=== PATIENT | female | born 1965 | race Caucasian/White ===

== ENCOUNTER → 2017-10-22 | Outpatient (CLI) | payer BC ==
--- NOTE | 2017-10-22 15:35 | Diagnostic Imaging Report ---
INDICATION: Generalized pelvic pain. FINDINGS: Transabdominal and transvaginal pelvic sonography was performed. The uterus measures 10.0 x 6.1 x 5.5 cm. The endometrium is abnormally thickened at 14 mm. No myometrial mass is seen. There are small cervical nabothian cysts present. Right and left adnexal evaluation was performed. The ovaries were not visualized due to overlying bowel gas. No adnexal mass is seen. No free fluid is detected. IMPRESSION: 1. Endometrial thickening for a patient of this age. This could be owing to hyperplasia or polyp, however, neoplasm cannot be entirely excluded. Remainder of the study is unremarkable although the adnexa were poorly visualized due to overlying bowel gas. Dictated by: Dictated on workstation # [id number]
== END ==
LOC: RAD 14:11
PROVIDERS: ATTEND Nurse Practitioner
DX: R93.8 Abnormal findings on diagnostic imaging of other specified body structures (principal); N91.2 Amenorrhea, unspecified
CPT/HCPCS: 76830; 76856

== ENCOUNTER 2017-12-13 09:22 | Outpatient (CLI) | payer BC ==
[~2017-12-13] VITALS: Ht 160 cm; Wt 148.3 kg
[2017-12-13 09:37] VITALS: BP 145/85
[2017-12-13 10:07] LABS: BASOPHILS # (AUTO) 0.1 10^3/uL (0.0-0.1); BASOPHILS % (AUTO) 1 % (0-10); EOSINOPHILS # (AUTO) 0.4 10^3/uL (0.0-0.3); EOSINOPHILS % (AUTO) 6 % (0-10); HEMATOCRIT 34 % (35-52); HEMOGLOBIN 10.8 G/DL (11.5-16.0); LYMPHOCYTES # (AUTO) 1.5 X 10^3 (1.0-4.0); LYMPHOCYTES % (AUTO) 23 % (12-44); MEAN CORPUSCULAR HEMOGLOBIN 24 PG (25-34); MEAN CORPUSCULAR HGB CONC 31 G/DL (32-36); MEAN CORPUSCULAR VOLUME 78 FL (80-99); MEAN PLATELET VOLUME 9.2 FL (7.4-10.4); MONOCYTES # (AUTO) 0.5 X 10^3 (0.0-1.0); MONOCYTES % (AUTO) 8 % (0-12); NEUTROPHILS # (AUTO) 4.1 X 10^3 (1.8-7.8); NEUTROPHILS % (AUTO) 62 % (42-75); PLATELET COUNT 349 10^3/uL (130-400); RED BLOOD COUNT 4.43 10^6/uL (4.35-5.85); RED CELL DISTRIBUTION WIDTH 15.9 % (10.0-14.5); WHITE BLOOD COUNT 6.6 10^3/uL (4.3-11.0)
[2017-12-20] MEDS ORDERED: IBUP-844 PO (07:25)
[2017-12-20] MEDS ORDERED: DOCU100C37 PO (07:25)
[2017-12-20] MEDS ORDERED: SIME80TA16 PO (07:25)
[2017-12-20] MEDS ORDERED: HYDR-34 PO (07:25)
== END 2017-12-13 09:57 | disposition home or self-care (01) ==
LOC: PREOP 09:22
PROVIDERS: ATTEND Obstetrics & Gynecology
DX: Z01.812 Encounter for preprocedural laboratory examination (principal); Z11.2 Encounter for screening for other bacterial diseases; N95.0 Postmenopausal bleeding
CPT/HCPCS: 36415; 85025; 86850; 86900; 86901; 87081

== ENCOUNTER 2017-12-20 06:10 | Day surgery (SDC) | payer BC ==
[~2017-12-20] VITALS: Ht 160 cm; Wt 148.3 kg
--- OUTSIDE RECORDS SUMMARY | 2017-12-20 06:19 | XMS REPORT | Continuity of Care Document ---
Author Author [facility] Organization [facility] Address Unknown Phone Unavailable Allergies Active Description Code Type Severity Reaction Onset Reported/Identified Relationship to Patient Clinical Status Yes Penicillins [id number] Drug Allergy Unknown RASH 12/13/2017 Medications There is no data. Problems Date Dx Coded Attending Type Code Diagnosis Diagnosed By 08/25/2014 NIKKIE MARY Ot 611.71 08/16/2015 Ot V76.12 08/16/2015 NIKKIE MARY CONTACT OFFICER Ot 625.9 08/16/2015 NIKKIE MARY CONTACT OFFICER Ot 626.8 08/16/2015 NIKKIE MARY CONTACT OFFICER Ot V76.12 08/16/2015 NIKKIE MARY CONTACT OFFICER Ot 611.71 10/22/2017 NIKKIE MARY CONTACT OFFICER Ot 625.9 FEM GENITAL SYMPTOMS NOS 10/22/2017 NIKKIE MARY CONTACT OFFICER Ot 626.8 MENSTRUAL DISORDER NEC 10/22/2017 NIKKIE MARY CONTACT OFFICER Ot V76.12 OTH SCREEN MAMMO-MALIGN NEOPLASM OF ELISE 10/22/2017 NIKKIE MARY CONTACT OFFICER Ot 611.71 MASTODYNIA 10/23/2017 NIKKIE MARY CONTACT OFFICER Ot N91.2 AMENORRHEA, UNSPECIFIED 10/23/2017 NIKKIE MARY CONTACT OFFICER Ot R93.8 ABNORMAL FINDINGS ON DIAGNOSTIC IMAGING 10/28/2017 NIKKIE MARY CONTACT OFFICER Ot N91.2 AMENORRHEA, UNSPECIFIED 10/28/2017 NIKKIE MARY CONTACT OFFICER Ot R93.8 ABNORMAL FINDINGS ON DIAGNOSTIC IMAGING 11/14/2017 NIKKIE MARY CONTACT OFFICER Ot N91.2 AMENORRHEA, UNSPECIFIED 11/14/2017 NIKKIE MARY CONTACT OFFICER Ot R93.8 ABNORMAL FINDINGS ON DIAGNOSTIC IMAGING 12/14/2017 TELLY PAYTON DO Ot N95.0 POSTMENOPAUSAL BLEEDING 12/14/2017 TELLY PAYTON DO Ot Z01.812 ENCOUNTER FOR PREPROCEDURAL LABORATORY E 12/14/2017 TELLY PAYTON DO Ot Z11.2 ENCOUNTER FOR SCREENING FOR OTHER BACTER 12/19/2017 TELLY PAYTON DO Ot N95.0 POSTMENOPAUSAL BLEEDING 12/19/2017 TELLY PAYTON DO Ot Z01.812 ENCOUNTER FOR PREPROCEDURAL LABORATORY E 12/19/2017 TELLY PAYTON DO Ot Z11.2 ENCOUNTER FOR SCREENING FOR OTHER BACTER Procedures There is no data. Results Test Result Range Methicillin resistant Staphylococcus aureus (MRSA) screening culture - 09:50 Methicillin resistant Staphylococcus aureus (MRSA) screening culture NEG NRG Complete blood count (CBC) with automated white blood cell (WBC) differential - 12/13/17 09:53 Blood leukocytes automated count (number/volume) 6.6 10*3/uL 4.3-11.0 Blood erythrocytes automated count (number/volume) 4.43 10*6/uL 4.35-5.85 Venous blood hemoglobin measurement (mass/volume) 10.8 g/dL 11.5-16.0 Blood hematocrit (volume fraction) 34 % 35-52 Automated erythrocyte mean corpuscular volume 78 [foz_us] 80-99 Automated erythrocyte mean corpuscular hemoglobin (mass per erythrocyte) 24 pg 25-34 Automated erythrocyte mean corpuscular hemoglobin concentration measurement ( mass/volume) 31 g/dL 32-36 Automated erythrocyte distribution width ratio 15.9 % 10.0-14.5 Automated blood platelet count (count/volume) 349 10*3/uL 130-400 Automated blood platelet mean volume measurement 9.2 [foz_us] 7.4-10.4 Automated blood neutrophils/100 leukocytes 62 % 42-75 Automated blood lymphocytes/100 leukocytes 23 % 12-44 Blood monocytes/100 leukocytes 8 % 0-12 Automated blood eosinophils/100 leukocytes 6 % 0-10 Automated blood basophils/100 leukocytes 1 % 0-10 Blood neutrophils automated count (number/volume) 4.1 10*3 1.8-7.8 Blood lymphocytes automated count (number/volume) 1.5 10*3 1.0-4.0 Blood monocytes automated count (number/volume) 0.5 10*3 0.0-1.0 Automated eosinophil count 0.4 10*3/uL 0.0-0.3 Automated blood basophil count (count/volume) 0.1 10*3/uL 0.0-0.1 Blood type T Indirect antibody screen panel - 12/13/17 09:53 ABO+Rh group AN NRG Blood group antibody screen NEGATIVE NRG Encounters ACCT No. Visit Date/Time Discharge Status Pt. Type Provider Facility Loc./Unit Complaint [id number] 12/13/2017 09:22:00 12/13/2017 09:57:00 DIS Outpatient TELLY PAYTON DO [facility] PREOP ROBOTIC HYSTERECOMY , A P REPAIRS [id number] 10/24/2017 14:02:00 10/24/2017 23:59:59 CLS Preadmit NIKKIE MARY [facility] RAD SCREENING Z12.31 [id number] 10/22/2017 14:11:00 10/22/2017 23:59:59 CLS Outpatient NIKKIE MARY [facility] RAD R10.2 PELVIC PAIN [id number] 07/28/2014 08:00:00 07/28/2014 23:59:59 CLS Outpatient NIKKIE MARY [facility] RAD ABNORMAL MAMMO [id number] 04/02/2014 14:21:00 04/02/2014 23:59:59 CLS Outpatient NIKKIE MARYP [facility] RAD DUB AND PELVIC PAIN SCREENING [id number] 12/20/2017 07:30:00 PEN Preadmit TELLY PAYTON DO [facility] [address] PELVIC ORGAN PROLAPSE, UT. ENLARGEMENT, [id number] 04/10/2012 13:30:00 Document Registration
[2017-12-20 06:20] VITALS: BP 133/77
[2017-12-20] MEDS ORDERED: LACTATED RINGERS 1,000 ML IV ONE (06:30)
[2017-12-20] MEDS ORDERED: LACTATED RINGERS 1,000 ML IV PRN ×2 (06:44→06:51)
[2017-12-20] MEDS ORDERED: metroNIDAZOLE 500MG/100ML IVPB 100 ML IV ONE (06:45)
[2017-12-20] MEDS ORDERED: ceFAZolin 2 GM IV Premixed 50 ML IV ONE (06:45)
[2017-12-20] MEDS ORDERED: ceFAZolin 2 GM IV Premixed 50 ML ONE (06:46)
[2017-12-20] MEDS ORDERED: ONDANSETRON 4 MG/2 ML (SDV) Z0FRAN ONE (06:46)
[2017-12-20] MEDS ORDERED: metroNIDAZOLE 500MG/100ML IVPB 100 ML ONE (06:47)
[2017-12-20] MEDS ORDERED: FAMOTIDINE 20MG/2ML IV (PEPCID) ONE (06:47)
[2017-12-20] MEDS ORDERED: ESTROGENS CONJ. CREAM 30 GM (PREMARIN) TUBE ONE (06:51)
[2017-12-20] MEDS ORDERED: VASOPRESSIN INJECTION 20 UNIT/ML VIAL ONE (06:51)
[2017-12-20] MEDS ORDERED: BUPIVACAINE 0.25% 30 ML (SENSORCAINE) VIAL ONE (06:52)
[2017-12-20] MEDS ORDERED: LIDOCAINE PF 2% 5 ML (XYLOCAINE) VIAL ONE (06:55)
[2017-12-20] MEDS ORDERED: proPOfol 200 MG/20 ML (DIPRIVAN) VIAL IV ONE (06:55)
[2017-12-20] MEDS ORDERED: SEVOFLURANE (ULTANE) 15 ML INHAL SOLN ONE ×6 (06:55→09:08)
[2017-12-20] MEDS ORDERED: SUCCINYLCHOLINE INJ 100 MG/5 ML SYR ONE (06:56)
[2017-12-20] MEDS ORDERED: MIDAZOLAM 2 MG/2 ML (VERSED) VIAL ONE (06:56)
[2017-12-20] MEDS ORDERED: fentaNYL INJECTION 100 MCG/2 ML AMP ONE (06:56)
[2017-12-20] MEDS ORDERED: ROCURONIUM 10 MG/ML 5 ML SYRINGE IV ONE (06:56)
[2017-12-20] MEDS ORDERED: ONDANSETRON 4 MG/2 ML (SDV) Z0FRAN IV ONE (07:00)
[2017-12-20] MEDS ORDERED: FAMOTIDINE 20MG/2ML IV (PEPCID) IV ONE (07:00)
--- NOTE | 2017-12-20 07:18 | Progress Note-Pre Operative ---
Pre-Operative Progress Note H&P Reviewed The H&P was reviewed, patient examined and no changes noted. Date Seen by Provider: December 20, 2017 Time Seen by Provider: 07:00 Date H&P Reviewed: December 20, 2017 Time H&P Reviewed: 07:05 Pre-Operative Diagnosis: Pelvic organ prolapse, CPP, AUB, BMI 57 TELLY PAYTON DO December 20, 2017 7:18 am
--- NOTE | 2017-12-20 07:23 | Discharge Inst-Women's Service ---
Discharge Inst-Women's Serv Depart Medication/Instructions New, Converted or Re-Newed RX: RX on Chart Consults/Follow Up Additional Follow Up: Yes Orders/Referrals Dr. Joya in 7-10 days and in 8 weeks Activity Activity: Activity as Tolerated Driving Instructions: No Driving for 1 Week NO SMOKING: NO SMOKING Nothing Inside Vagina: No Douching, No [place], No Tampons Diet Discharge Diet: No Restrictions Symptoms to Report to : Bleeding Excessive, Pain Increased, Fever Over 101 Degrees F, Vaginal Bleeding Increase, Questions/Concerns For Any Problems or Questions: Contact Your Physician Skin/Wound Care Infection Signs and Symptoms: Increased Redness, Foul Odor of Wound, Increased Drainage, Skin Itchy or Has a Rash, Increased Swelling, Temperature Above 101 F Operative Area Clean and Dry: Keep Incision Clean/Dry Stitches/Susan/Dermabond: Dermabond, Care of Stitches Bathing Instructions: TELLY Stephenson DO December 20, 2017 7:23 am
[2017-12-20] MEDS ORDERED: HYDR-34 PO (07:25)
[2017-12-20] MEDS ORDERED: IBUP-844 PO (07:25)
[2017-12-20] MEDS ORDERED: SIME80TA16 PO (07:25)
[2017-12-20] MEDS ORDERED: DOCU100C37 PO (07:25)
[2017-12-20] MEDS ORDERED: ONDANSETRON 4 MG/2 ML (SDV) Z0FRAN IV PRN (07:30)
[2017-12-20] MEDS ORDERED: DOCUSATE SODIUM 100 MG (COLACE) CAP PO PRN (07:30)
[2017-12-20] MEDS ORDERED: CHLORASEPTIC LOZENGE MM PRN (07:30)
[2017-12-20] MEDS ORDERED: ZOLPIDEM 5 MG (AMBIEN) TAB PO PRN (07:30)
[2017-12-20] MEDS ORDERED: SIMETHICONE 80 MG (MYLICON) CHEW PO PRN (07:30)
[2017-12-20] MEDS ORDERED: ANTACID SUSP 30 ML UDC (MYLANTA) PO PRN (07:30)
[2017-12-20] MEDS ORDERED: morphine INJ 10 MG/ML 1ML (SYR OR VIAL) ONE (09:40)
[2017-12-20] MEDS ORDERED: ONDANSETRON 4 MG/2 ML (SDV) Z0FRAN IVP PRN (09:45)
[2017-12-20] MEDS ORDERED: HYDROmorphone 2 MG/ML VIAL (DILAUDID) IVP PRN (09:45)
[2017-12-20] MEDS: KETOROLAC 30 MG/ML VIAL IV PRN ×2 (09:45→17:40)
[2017-12-20] MEDS ORDERED: fentaNYL INJECTION 100 MCG/2 ML AMP IVP PRN (09:45)
[2017-12-20] MEDS ORDERED: MEPERIDINE (DEMEROL) INJ 50 MG/ML IVP PRN (09:45)
[2017-12-20] MEDS: morphine INJ 10 MG/ML 1ML (SYR OR VIAL) IVP PRN ×2 (09:50→09:55)
[2017-12-20 10:40] VITALS: BP 113/58
[2017-12-20] MEDS: HYDROcodone/APAP 7.5 MG/325 MG (LORTAB, LORCET PLUS) TABLET PO PRN ×2 (11:59→20:09)
[2017-12-20] MEDS: LACTATED RINGERS 1,000 ML IV SCH ×2 (14:06→18:41)
[2017-12-20 15:15] VITALS: BP 109/62
--- NOTE | 2017-12-20 15:15 | OPERATIVE REPORT ---
DATE OF SERVICE: PREOPERATIVE DIAGNOSES: 1. A 52-year-old female with abnormal uterine bleeding. 2. Pelvic organ prolapse. 3. Rectocele. 4. Cystocele. 5. Morbid obesity with a BMI of 57. POSTOPERATIVE DIAGNOSES: 1. A 52-year-old female with abnormal uterine bleeding. 2. Pelvic organ prolapse. 3. Rectocele. 4. Cystocele. 5. Morbid obesity with a BMI of 57. PROCEDURE: Robotic-assisted total laparoscopic hysterectomy with bilateral salpingo-oophorectomy and posterior colporrhaphy. SURGEON: Derek Joya DO SHELLFISH WEIGHER: ANA Collado. ANESTHESIA: General endotracheal. ESTIMATED BLOOD LOSS: Minimal. URINE OUTPUT: 20 mL clear at end of procedure. FLUIDS: 1500 mL of lactated Ringer solution. FINDINGS: Slightly bulky and enlarged uterus with bilateral normal appearing fallopian tubes and ovaries, a grade III rectocele, a grade II cystocele, normal vaginal mucosa. SPECIMEN SENT: Uterus, bilateral fallopian tubes and ovaries. INDICATIONS FOR PROCEDURE: This 52-year-old female was a consultation to me from Gale Gracia, our nurse practitioner, who had seen the patient for irregular bleeding. Endometrial biopsy was performed in the office at my consultation with her which was found to be negative for malignancy or infectious causes. However, at that visit, I also was able to gather that the patient had a significant degree of pelvic organ prolapse as well as some chronic pelvic pain and pressure that she fell down the pelvis. At that consultation, we briefly reviewed proceeding with hysterectomy. At followup consultation, we further discussed what this would entail versus placing a pessary, which would not correct the rectocele. Risk of this procedure was discussed in detail including risk of bleeding, infection, damage to any surrounding structures including but not limited to bowel, bladder, ureter, kidneys, need for reoperation, postoperative thromboembolic events, possibility of postoperative complications, risk from anesthesia and even . After everything was discussed with the patient and all of her questions were answered both in the consultation and in the preoperative area, the consent was obtained and the patient was taken to the operating room. OPERATIVE REPORT IN DETAIL: Once in the operating room, general anesthesia was found to be adequate. She was placed in dorsal lithotomy position, prepped and draped in normal sterile fashion. The case was started by placing a Elena catheter using sterile technique. A weighted speculum was inserted in the patient's vagina. A right angle retractor was used to visualize the cervix, which is grasped at the 12 o'clock position using a long Allis clamp. I then placed an 0 Vicryl suture through the anterior lip of the cervix and remove Allis clamp. I used this suture as my retraction on the uterus. I then sound the uterine cavity depth was found to be 10 cm. I then selected a 10 cm Jojo uterine manipulator tip and a 4 cm colpotomy ring. Placing the manipulator tip into the endometrial cavity and deployed the balloon and advancing the colpotomy ring around the cervix. Once this was noted to be in place, I removed the weighted speculum and perform a change of gloves and took the attention to the abdomen where supraumbilically I infiltrated this area using 0.25% Marcaine. I make an 8 mm incision. I directed a Veress needle through the incision until intraperitoneal placement, which was then confirmed using a saline drop test. I then proceeded with insufflation using CO2 gas and opening pressure of 6 mmHg was noted. I proceed to a maximum pressure of 15 mmHg, which when I removed the Veress needle and introduced an 8 mm blunt da Hero camera trocar. Once this was in place, I am able to confirm intraperitoneal placement using da Hero laparoscope. I then had the patient placed in Trendelenburg, so that I am able to visualize all the adequate pelvic anatomy and landmarks that I need to perform the procedure. Once this was done, I placed two lateral trocars approximately 12 to 13 cm lateral to my supraumbilical trocar. They are both 8 mm trocars. Incisions were made using a knife and the skin is infiltrated using 0.25% Marcaine similarly. Once these are in place, I bring in the da Hero robot and docked it in the appropriate fashion placing the vessel sealer in my left hand and monopolar rai in the right hand. Once the da Hero is docked, I took my place at the operative console. I then performed the following bilaterally. I first started at the infundibulopelvic ligament, bipolar cauterized and transected using the vessel sealer. I grasped the round ligament, bipolar cauterized and transected using vessel sealer. I then unable to grasp the entire broad ligament, which I bipolar cauterized and transected using the vessel sealer. I then took the anterior leaflet of the broad ligament around to the anterior vaginal fornix, taking down the peritoneum. I took the posterior leaflet down to the posterior vaginal fornix, taken down the peritoneum, which allowed me to skeletonize the uterine vessels laterally, which I bipolar cauterized and transected using the vessel sealer. Once this was done, I performed a colpotomy at 12 o'clock position and took this colpotomy circumferentially around the vaginal fornix using monopolar rai, amputating the cervix away from the vaginal fornix. The uterus, cervix, fallopian tubes, and ovaries were then removed through the vagina. I then closed the vaginal cuff, starting with 2-0 Vicryl suture in the lateral vaginal apices, colopsuspending then to the uterosacral ligaments. I then closed the remainder of the vaginal cuff using 2-0 V-Loc, after which was no active bleeding noted from any of my dissection planes. I then undocked the da Hero robot and took my attention back to the abdomen where I copiously irrigated the pelvis using normal saline. Once again, there was no active bleeding noted from any of my dissection planes. I placed FloSeal hemostatic agent over my planes of dissection to ensure postoperative hemostasis and then removed the lateral trocars from the patient under direct visualization of the laparoscope. The supraumbilical trocar was left in place to release insufflation and to introduce 10 mL of 0.25% Marcaine. Once this was in place, I then removed the supraumbilical trocar. We closed the incisions using 4-0 Monocryl in interrupted subcuticular stitch. Dermabond was applied to the incision and bandage was placed over these incisions. I then took my attention back to the vagina where the cystocele was noted to be completely reduced at this point; however, there was still a significant grade III to grade IV rectocele. I started by grasping the mucocutaneous junction of the vaginal introitus at the 5 and 7 o'clock position using Allis clamps. I then infiltrated the perineal body with vasopressin and infiltrated the submucosa of the vagina using vasopressin around all the margins of the rectocele. The vasopressin concentration is 20 units in 100 mL of normal saline. Once all the margins of the rectocele are infiltrated and adequate blanching was noted of the mucosa. I then took a knife and between the 2 Allis clamps, I make an incision with a knife and connect this incision down the perineal body creating an upside down triangle. The skin was then removed. I then had a plane to start my dissection down to the midline of the rectocele. I do this using Metzenbaum scissors undermining the tissue all the way down the extent of the midline of the rectocele. I then incised this entire undermining incision using the Metzenbaum scissors. I then performed the following bilaterally. I grasped the mucosa on the lateral aspect of the incision using a T clamp and dissect the underlying rectocele off of the underlying rectovaginal fascia. Once this was done bilaterally, I trimmed the excess vaginal mucosa and rectovaginal fascia from the lateral aspects of the rectocele. I then proceeded with closing the rectocele using 0 Vicryl suture in a running locked fashion. This both reduces the rectocele and reapproximate the rectovaginal fascia plicating it down my repair margin. The suture is locked all the way down to the point of the mucocutaneous junction, at which point I bring the suture out down the midline of the perineal body incision and performed 2 deep crown stitches to reapproximate the perineal body. I then closed the skin of the perineal body in a running subcuticular fashion using the 0 Vicryl. Once this is done, hemostasis was noted of all of my dissection plane. I then packed the vagina using vaginal packing soaked in Premarin cream and leave the Elena catheter in place. All other instruments were removed from the patient. Lap and sponge count was correct at the end of the procedures. Instrument counts were correct as well. The patient tolerated the procedure well and sent to recovery in stable condition. Two grams of Ancef and 500 mg of Flagyl were given preoperatively for infection prophylaxis. Job ID: [id number] DocumentID: [id number] Dictated Date: 12/20/2017 09:52:49 Campground Manager Date: 12/20/2017 15:15:17 Dictated By: DEREK JOYA DO
[2017-12-20] MEDS ORDERED: FUROSEMIDE 40 MG/4 ML INJ (LASIX) IVP NR (18:30)
[2017-12-20 20:10] VITALS: BP 100/66
[2017-12-21] MEDS: KETOROLAC 30 MG/ML VIAL IV PRN (00:46)
[2017-12-21 00:50] VITALS: BP 106/68
[2017-12-21] MEDS: LACTATED RINGERS 1,000 ML IV SCH (02:47)
[2017-12-21 04:55] VITALS: BP 111/69
[2017-12-21] MEDS: IBUPROFEN 600 MG (MOTRIN) TAB PO PRN ×2 (06:43→13:01)
[2017-12-21 09:00] VITALS: BP 125/67
--- NOTE | 2017-12-21 10:31 | Anesthesia-General Post-Op ---
General Patient Condition Mental Status/LOC: Same as Preop Cardiovascular: Satisfactory Nausea/Vomiting: Absent Respiratory: Satisfactory Pain: Controlled Complications: Absent Post Op Complications Complications None Follow Up Care/Instructions Patient Instructions None needed. Anesthesia/Patient Condition Patient Condition Patient is doing well, no complaints, stable vital signs, no apparent adverse anesthesia problems. No complications reported per nursing. GERDA LEY CRNA December 21, 2017 10:31
[2017-12-21 13:15] VITALS: BP 103/62
[2017-12-21] MEDS: HYDROcodone/APAP 7.5 MG/325 MG (LORTAB, LORCET PLUS) TABLET PO PRN (14:18)
== END 2017-12-21 14:20 | disposition home or self-care (01) ==
LOC: SDC 06:10 → WS 09:26 → SDC 12-21 14:20
PROVIDERS: ATTEND Obstetrics & Gynecology
DX: N93.9 Abnormal uterine and vaginal bleeding, unspecified (principal); N81.10 Cystocele, unspecified; N81.6 Rectocele; N72 Inflammatory disease of cervix uteri; N88.8 Other specified noninflammatory disorders of cervix uteri; N80.0 Endometriosis of uterus; D25.1 Intramural leiomyoma of uterus; N83.8 Other noninflammatory disorders of ovary, fallopian tube and broad ligament; D27.0 Benign neoplasm of right ovary; N94.89 Other specified conditions associated with female genital organs and menstrual cycle; N83.292 Other ovarian cyst, left side; E66.01 Morbid (severe) obesity due to excess calories; Z68.43 Body mass index [BMI] 50.0-59.9, adult
CPT/HCPCS: 84703; 86850; 86900; 86901; 88307

== ENCOUNTER 2020-09-15 08:46 | Emergency (ER) | payer BC ==
[~2020-09-15] VITALS: Ht 160 cm; Wt 115.0 kg
[~2020-09-15 08:46] MED LIST: DOCU100C37 PO; HYDR-34 PO; IBUP-844 PO; SIME80TA16 PO
--- NOTE | 2020-09-15 08:58 | ED General ---
General Chief Complaint: General Problems/Pain Stated Complaint: FALL Source of Information: Patient History of Present Illness Date Seen by Provider: Sep 15, 2020 Time Seen by Provider: 08:56 Initial Comments 55 yo female presenting with complaints of slipping on linoleum at home and landed on her back and hit right side of her head. She denies LOC. She is aching all over. She denies any vomiting but states that she had some mild nausea after arriving in the ED. This fall happened around 7:30 AM. She was concerned about hitting her head and feeling fatigued and sleepy after hitting her head. She was having 6 or 7 out of 10 pain in her back mainly between her shoulder blades. She denied any numbness or tingling in her arms or legs. She has no difficulty with walking. She has had no change in her vision. She has had no drainage from her nose or ears. Allergies and Home Medications Allergies Coded Allergies: Penicillins (Verified Allergy, Unknown, RASH, 12/13/17) Home Medications Baclofen 10 Mg Tablet, 10 MG PO BID PRN for MUSCLE SPASMS Prescribed by: PEDRITO SANTIAGO on 09/15/20 1035 Ibuprofen 800 Mg Tablet, 800 MG PO Q8H PRN for PAIN Prescribed by: PEDRITO SANTIAGO on 09/15/20 1035 Patient Home Medication List Home Medication List Reviewed: Yes Review of Systems Review of Systems Constitutional: No chills, No fever EENTM: No ear discharge, No ear pain, No blurred vision, No eye pain, No epistaxis, No nose congestion Respiratory: No cough Cardiovascular: No chest pain Gastrointestinal: No abdominal pain; nausea; No vomiting Genitourinary: no symptoms reported Musculoskeletal: see HPI, back pain (upper back pain between shoulder blades primarily but also on trapezius muscles) Skin: no symptoms reported Psychiatric/Neurological: Headache (mild right sided headache); Denies Numbness, Denies Paresthesia, Denies Weakness Hematologic/Lymphatic: Denies Easy Bleeding, Denies Easy Bruising Past Kfoknov-Fzcyrp-Ytwjzt Hx Past Med/Social Hx: Reviewed Nursing Past Med/Soc Hx Patient Social History Recent Hopitalizations: No Seasonal Allergies Seasonal Allergies: Yes Past Medical History Surgeries: Yes (ankle sx, shoulder sx, lipomas removed, ) Respiratory: No (gets SOB when she lays flat, or walks long distance) Cardiac: No Neurological: No Reproductive Disorders: Yes Genitourinary: No Gastrointestinal: No Musculoskeletal: Yes Arthritis Endocrine: No HEENT: No Cancer: No Psychosocial: No Integumentary: No Blood Disorders: Yes (anemia) Family Medical History Alcoholism 19 FATHER Asthma 19 MOTHER Cardiovascular disease 19 MOTHER Diabetes mellitus 19 MOTHER FH: throat cancer 19 FATHER Hypertension 19 FATHER 19 MOTHER Myocardial infarction G8 BROTHER Respiratory disorder 19 MOTHER Physical Exam Vital Signs Vital Signs - First Documented 09/15/20 09:04 Temp 35.6 Pulse 87 Resp 18 B/P (MAP) 150/85 (106) Pulse Ox 97 O2 Delivery Room Air Capillary Refill : Height, Weight, BMI Height: 5'3.00" Weight: 327lbs. 0.0oz. 148.406524oz; 57.9 BMI Method: General Appearance: No Apparent Distress, WD/WN, Obese HEENT: PERRL/EOMI, TMs Normal, Normal ENT Inspection, Pharynx Normal, Moist Mucous Membranes, Other (no hemotympanum, CSF otorrhea or CSF rhinorrhea. Negative Valencia sign, raccoon sign) Neck: Full Range of Motion, Non Tender, Supple Respiratory: Chest Non Tender, Lungs Clear, Normal Breath Sounds, No Accessory Muscle Use, No Respiratory Distress Cardiovascular: Regular Rate, Rhythm, Normal Peripheral Pulses Back: Muscle Spasm (trapezius bilaterally), Vertebral Tenderness (thoracic spine without step off or crepitus) Extremity: Normal Capillary Refill, Normal Inspection, Normal Range of Motion Neurologic/Psychiatric: Alert, Oriented x3, heel former II-XII Norm as Tested Skin: Normal Color, Warm/Dry Progress/Results/Core Measures Suspected Sepsis SIRS Temperature: Pulse: Respiratory Rate: Blood Pressure / Mean: Results/Orders My Orders Orders - PEDRITO SANTIAGO MD Ketorolac Injection (Toradol Injection) (09/15/20 09:14) Thoracic Spine 3v Ap Lat Swim (09/15/20 09:18) Vital Signs/I&O 09/15/20 09/15/20 09:04 10:40 Temp 35.6 35.6 Pulse 87 76 Resp 18 18 B/P (MAP) 150/85 (106) 134/68 (106) Pulse Ox 97 98 O2 Delivery Room Air Room Air Capillary Refill : Progress Note #1: Progress Note No indication for a CT scan of her head with no raccoon sign, valencia sign, CSF otorrhea or CSF rhinorrhea and no LOC. She has tenderness of her Thoracic spine but no step off or crepitus and has muscle spasm to trapezius muscles. Toradol 60 mg IM and obtain T spine films. Progress Note #2: Progress Note no acute fracture or dislocation seen on imaging of the thoracic spine. Continue with symptomatic treatment and encourage follow up with clinic for continued symptoms Diagnostic Imaging Diagonstic Imaging: Xray Plain Films/CT/US/NM/MRI: other (thoracic spine) Comments NAME: MAURO SUE [facility] REC#: [id number] PT STATUS: REG ER : 1965 PHYSICIAN: PEDRITO SANTIAGO MD ADMIT DATE: 09/15/20/ER FS Draft Date of Exam:09/15/20 THORACIC SPINE 3V AP LAT SWIM INDICATION: Spine pain, fall. COMPARISON: None available. TECHNIQUE: Five radiographs of the thoracic spine dated 09/15/2020. FINDINGS: Multilevel mild anterolisthesis is identified within the upper cervical spine. Alignment of the thoracic spine itself appears well-maintained. Besides mild endplate degenerative changes and a few small scattered Schmorl's nodes, Vertebral body heights otherwise appear well maintained. Mild disc space height loss, particularly within the mid to lower thoracic spine. No severe disc space height loss. No acute fracture. Multilevel lateral osteophytes and small anterior osteophytes. No large volume pleural effusion. Surgical clips within the right upper quadrant of the abdomen. IMPRESSION: No acute osseous abnormality within the thoracic spine with mild multilevel degenerative changes. Multilevel mild anterolisthesis within the partially visualized upper cervical spine. If there is clinical concern for the cervical spine itself, then dedicated radiographs of the cervical spine including flexion and extension views could be obtained. Dictated on workstation # [id number] Dict: 09/15/20 1019 Trans: 09/15/20 1025 JM [id number] Interpreted by: SENDY ENG MD Electronically signed by: Departure Impression Primary Impression: Thoracic spine pain Additional Impressions: Closed head injury without loss of consciousness Qualified Codes: S09.90XA - Unspecified injury of head, initial encounter Fall at home Qualified Codes: W19.XXXA - Unspecified fall, initial encounter; Y92.009 - Unspecified place in unspecified non-institutional (private) residence as the place of occurrence of the external cause Disposition: 01 HOME, SELF-CARE Condition: Stable Departure-Patient Inst. Decision time for Depature: 10:36 Referrals: ROCK SHEFFIELD MD (PCP/Family) Primary Care Physician Patient Instructions: CHEST CONTUSION, Minor Head Injury, Adult ED, Upper Back Pain (DC) Add. Discharge Instructions: Use ice 20-30 minutes every few hours as needed for pain and inflammation. After the first 24-48 hours you can alternate with heat. Use anti-inflammatory medicine to help with pain, muscle relaxer to help you rest and loosen your muscles, Acetaminophen if needed for additional pain control. If not improving in next 3-5 days check back with Dr. Sheffield for continued concerns. All discharge instructions reviewed with patient and/or family. Voiced understanding. Scripts Baclofen (Baclofen) 10 Mg Tablet 10 MG PO BID PRN for MUSCLE SPASMS for 10 Days, #20 TAB 0 Refills Prov: PEDRITO SANTIAGO MD 09/15/20 Ibuprofen (Ibuprofen) 800 Mg Tablet 800 MG PO Q8H PRN for PAIN for 10 Days, #30 TAB 0 Refills Prov: PEDRITO SANTIAGO MD 09/15/20 PEDRITO SANTIAGO MD Sep 15, 2020 08:58
[2020-09-15] MEDS ORDERED: KETOROLAC 60 MG/2 ML VIAL IM STA (09:14)
--- NOTE | 2020-09-15 10:25 | Diagnostic Imaging Report ---
INDICATION: Spine pain, fall. COMPARISON: None available. TECHNIQUE: Five radiographs of the thoracic spine dated 09/15/2020. FINDINGS: Multilevel mild anterolisthesis is identified within the upper cervical spine. Alignment of the thoracic spine itself appears well-maintained. Besides mild endplate degenerative changes and a few small scattered Schmorl's nodes, Vertebral body heights otherwise appear well maintained. Mild disc space height loss, particularly within the mid to lower thoracic spine. No severe disc space height loss. No acute fracture. Multilevel lateral osteophytes and small anterior osteophytes. No large volume pleural effusion. Surgical clips within the right upper quadrant of the abdomen. IMPRESSION: No acute osseous abnormality within the thoracic spine with mild multilevel degenerative changes. Multilevel mild anterolisthesis within the partially visualized upper cervical spine. If there is clinical concern for the cervical spine itself, then dedicated radiographs of the cervical spine including flexion and extension views could be obtained. Dictated by: Dictated on workstation # [id number]
[2020-09-15] MEDS ORDERED: IBUP-1780 PO (10:35)
[2020-09-15] MEDS ORDERED: BACL10TA PO (10:35)
[2020-09-15 10:40] VITALS: BP 134/68
== END 2020-09-15 10:41 | disposition home or self-care (01) ==
LOC: EDUNIT# 08:46 → ER FS 08:48
DX: S09.90XA Unspecified injury of head, initial encounter (principal); M54.6 Pain in thoracic spine; E66.9 Obesity, unspecified; Z68.43 Body mass index [BMI] 50.0-59.9, adult; Z82.49 Family history of ischemic heart disease and other diseases of the circulatory system; Z83.3 Family history of diabetes mellitus; Z80.2 Family history of malignant neoplasm of other respiratory and intrathoracic organs; Z88.0 Allergy status to penicillin; W01.0XXA Fall on same level from slipping, tripping and stumbling without subsequent striking against object, initial encounter; Y92.009 Unspecified place in unspecified non-institutional (private) residence as the place of occurrence of the external cause
CPT/HCPCS: 72072

== ENCOUNTER 2021-03-19 11:58 | Emergency (ER) | payer BC ==
[~2021-03-19] VITALS: Ht 160 cm; Wt 154.2 kg
[~2021-03-19 11:58] MED LIST changes: +BACL10TA PO; +IBUP-1780 PO
--- NOTE | 2021-03-19 12:33 | ED General ---
General Chief Complaint: Cough/Cold/Flu Symptoms Stated Complaint: SOA/WEAKNESS/COUGH Nursing Triage Note: PT AMB TO RM 9 W C/O SOB, COUGH, AND WEAKNESS SINCE 1400 YESTERDAY. LYING FLAT MAKES SOB WORSE. PT HAS APPT TO GET TUBES IN EARS ON 04/07 AND HAS BEEN DEALING WITH SINUS ISSUES LATELY. Source of Information: Patient Exam Limitations: No Limitations History of Present Illness Date Seen by Provider: Mar 19, 2021 Time Seen by Provider: 12:02 Initial Comments This is a well-appearing 56-year-old female who presents to the ER with complaints of sinus drainage, cough, shortness of breath with ambulation. States that she been having excessive sinus drainage since December, has been through 3 r ounds of antibiotics, and has follow-up with ENT on April 07. States she is she is just returning from camping and over the past couple days she has noticed increased cough, wanted to get checked out to make sure she did not have Covid, or was developing any pneumonia. She denies fever, chills, nausea, vomiting, abdominal pain. She did have both of her Covid vaccines with the last in November. No known Covid exposure or ill contacts. Allergies and Home Medications Allergies Coded Allergies: Penicillins (Verified Allergy, Unknown, RASH, 12/13/17) Home Medications Baclofen 10 Mg Tablet, 10 MG PO BID PRN for MUSCLE SPASMS Prescribed by: PEDRITO SANTIAGO on 09/15/20 1035 Doxycycline Hyclate 100 Mg Tablet, 100 MG PO BID Prescribed by: PARMINDER MCCOY on 03/19/21 1555 Ibuprofen 800 Mg Tablet, 800 MG PO Q8H PRN for PAIN Prescribed by: PEDRITO SANTIAGO on 09/15/20 1035 Patient Home Medication List Home Medication List Reviewed: Yes Review of Systems Review of Systems Constitutional: see HPI EENTM: see HPI Respiratory: see HPI Cardiovascular: see HPI Gastrointestinal: no symptoms reported Genitourinary: no symptoms reported Musculoskeletal: no symptoms reported Skin: no symptoms reported Psychiatric/Neurological: No Symptoms Reported Hematologic/Lymphatic: No Symptoms Reported Immunological/Allergic: no symptoms reported Past Bgoijfp-Ysqzec-Glaepp Hx Patient Social History Tobacco Use?: No Smoking Status: Never a Smoker Substance use?: No Alcohol Use?: No Immunizations Up To Date Influenza Vaccine Up-to-Date: No; Not Current First/Initial COVID19 Vaccinat: NOVEMBER 2020 Second COVID19 Vaccination Richy: DECEMBER 2020 COVID19 Vaccine [employer] Specialist: [employer] Seasonal Allergies Seasonal Allergies: Yes Past Medical History Surgeries: Yes (ankle sx, shoulder sx, lipomas removed, ) Respiratory: No (gets SOB when she lays flat, or walks long distance) Cardiac: No Neurological: No Reproductive Disorders: Yes Genitourinary: No Gastrointestinal: No Musculoskeletal: Yes Arthritis Endocrine: No HEENT: No Cancer: No Psychosocial: No Integumentary: No Blood Disorders: Yes (anemia) Family Medical History Alcoholism 19 FATHER Asthma 19 MOTHER Cardiovascular disease 19 MOTHER Diabetes mellitus 19 MOTHER FH: throat cancer 19 FATHER Hypertension 19 FATHER 19 MOTHER Myocardial infarction G8 BROTHER Respiratory disorder 19 MOTHER Physical Exam Vital Signs Vital Signs - First Documented 03/19/21 12:10 Temp 37.3 Pulse 108 Resp 20 B/P (MAP) 150/96 (114) Pulse Ox 95 O2 Delivery Room Air Capillary Refill : Less Than 3 Seconds Height, Weight, BMI Height: 5'3.00" Weight: 327lbs. 0.0oz. 148.319640as; 60.00 BMI Method: General Appearance: No Apparent Distress, WD/WN Eyes: Bilateral Eye Normal Inspection, Bilateral Eye EOMI HEENT: PERRL/EOMI, Normal ENT Inspection, Pharynx Normal, Moist Mucous Membranes Neck: Full Range of Motion, Non Tender Respiratory: Chest Non Tender, Normal Breath Sounds, No Accessory Muscle Use, No Respiratory Distress; No Pleural Rub, No Rales; Other (coarse) Cardiovascular: Regular Rate, Rhythm, No Edema, No Murmur Gastrointestinal: Normal Bowel Sounds, Non Tender, Soft Extremity: Normal Inspection, Normal Range of Motion Neurologic/Psychiatric: Alert, Oriented x3, No Motor/Sensory Deficits, Normal Mood/Affect Skin: Normal Color, Warm/Dry Progress/Results/Core Measures Suspected Sepsis SIRS Temperature: Pulse: 108 Respiratory Rate: 20 Laboratory Tests 03/19/21 12:10: White Blood Count 10.8 Blood Pressure 150 /96 Mean: 114 Laboratory Tests 03/19/21 12:10: Creatinine 0.80, INR Comment 1.0, Platelet Count 271, Total Bilirubin 0.7 Results/Orders Lab Results Laboratory Tests Test 03/19/21 12:10 03/19/21 12:15 03/19/21 15:06 Range/Units White Blood Count 10.8 4.3-11.0 10^3/uL Red Blood Count 4.49 3.80-5.11 10^6/uL Hemoglobin 11.5 11.5-16.0 g/dL Hematocrit 38 35-52 % Mean Corpuscular Volume 84 80-99 fL Mean Corpuscular Hemoglobin 26 25-34 pg Mean Corpuscular Hemoglobin Concent 31 L 32-36 g/dL Red Cell Distribution Width 15.2 H 10.0-14.5 % Platelet Count 271 130-400 10^3/uL Mean Platelet Volume 9.7 9.0-12.2 fL Immature Granulocyte % (Auto) 1 % Neutrophils (%) (Auto) 81 H 42-75 % Lymphocytes (%) (Auto) 8 L 12-44 % Monocytes (%) (Auto) 7 0-12 % Eosinophils (%) (Auto) 4 0-10 % Basophils (%) (Auto) 1 0-10 % Neutrophils # (Auto) 8.7 H 1.8-7.8 10^3/uL Lymphocytes # (Auto) 0.8 L 1.0-4.0 10^3/uL Monocytes # (Auto) 0.7 0.0-1.0 10^3/uL Eosinophils # (Auto) 0.4 H 0.0-0.3 10^3/uL Basophils # (Auto) 0.1 0.0-0.1 10^3/uL Immature Granulocyte # (Auto) 0.1 0.0-0.1 10^3/uL Neutrophils % (Manual) 84 % Lymphocytes % (Manual) 5 % Monocytes % (Manual) 6 % Eosinophils % (Manual) 4 % Basophils % (Manual) 1 % Blood Morphology Comment NORMAL Prothrombin Time 13.2 12.2-14.7 SEC INR Comment 1.0 0.8-1.4 Activated Partial Thromboplast Time 30 24-35 SEC D-Dimer 1.81 H 0.00-0.49 UG/ML Sodium Level 141 135-145 MMOL/L Potassium Level 4.0 3.6-5.0 MMOL/L Chloride Level 111 H 98-107 MMOL/L Carbon Dioxide Level 22 21-32 MMOL/L Anion Gap 8 5-14 MMOL/L Blood Urea Nitrogen 10 7-18 MG/DL Creatinine 0.80 0.60-1.30 MG/DL Estimat Glomerular Filtration Rate 74 BUN/Creatinine Ratio 13 Glucose Level 116 H 70-105 MG/DL Calcium Level 9.1 8.5-10.1 MG/DL Corrected Calcium 9.4 8.5-10.1 MG/DL Magnesium Level 2.1 1.6-2.4 MG/DL Total Bilirubin 0.7 0.1-1.0 MG/DL Aspartate Amino Transf (AST/SGOT) 58 H 5-34 U/L Alanine Aminotransferase (ALT/SGPT) 67 H 0-55 U/L Alkaline Phosphatase 149 H 40-136 U/L Myoglobin 50.1 10.0-92.0 NG/ML Troponin I < 0.028 < 0.028 <0.028 NG/ML Total Protein 7.0 6.4-8.2 GM/DL Albumin 3.6 3.2-4.5 GM/DL Influenza Type A (RT-PCR) Not Detected Not Detecte Influenza Type B (RT-PCR) Not Detected Not Detecte SARS-CoV-2 RNA (RT-PCR) Not Detected Not Detecte Urine Color YELLOW Urine Clarity SL CLOUDY Urine pH 6.5 5-9 Urine Specific [place] 1.015 L 1.016-1.022 Urine Protein TRACE H NEGATIVE Urine Glucose (UA) NEGATIVE NEGATIVE Urine Ketones TRACE H NEGATIVE Urine Nitrite NEGATIVE NEGATIVE Urine Bilirubin NEGATIVE NEGATIVE Urine Urobilinogen 4.0 < = 1.0 MG/DL Urine Leukocyte Esterase NEGATIVE NEGATIVE Urine RBC (Auto) NEGATIVE NEGATIVE Urine RBC NONE /HPF Urine WBC NONE /HPF Urine Squamous Epithelial Cells 10-25 H /HPF Urine Crystals PRESENT H /LPF Urine Amorphous Sediment FEW HIMANSHU URATES H /LPF Urine Bacteria TRACE /HPF Urine Casts NONE /LPF Urine Mucus SMALL H /LPF Urine Culture Indicated NO My Orders Orders - PARMINDER MCCOY STRAIGHTENER Covid 19 Inhouse Test (03/19/21 12:02) Influenza A And B By Pcr (03/19/21 12:02) Chest 1 View, Ap/Pa Only (03/19/21 12:02) Ua Culture If Indicated (03/19/21 12:03) Cbc With Automated Diff (03/19/21 13:32) Magnesium (03/19/21 13:32) Ekg Tracing (03/19/21 13:32) Comprehensive Metabolic Panel (03/19/21 13:32) Myoglobin Serum (03/19/21 13:32) Protime With Inr (03/19/21 13:32) Partial Thromboplastin Time (03/19/21 13:32) O2 (03/19/21 13:32) Monitor-Rhythm Ecg Trace Only (03/19/21 13:32) Ed Iv/Invasive Line Start (03/19/21 13:32) Troponin I (03/19/21 13:32) Aspirin Chewable Tablet (Baby Aspirin Ch (03/19/21 13:45) Ns Iv 1000 Ml (Sodium Chloride 0.9%) (03/19/21 13:31) Ns Iv 1000 Ml (Sodium Chloride 0.9%) (03/19/21 13:45) Manual Differential (03/19/21 12:10) Fibrin Degradation Products (03/19/21 12:10) Ct Angio Chest W (03/19/21 14:11) Iohexol Injection (Omnipaque 350 Mg/Ml 1 (03/19/21 14:30) Received Contrast (Hold Metformin- Contr (03/19/21 14:30) Ns (Ivpb) (Sodium Chloride 0.9% Ivpb Bag (03/19/21 14:30) Troponin I (03/19/21 15:00) Doxycycline Hyclate Tablet (Vibramycin T (03/19/21 16:00) Medications Given in ED Vital Signs/I&O 03/19/21 12:10 Temp 37.3 Pulse 108 Resp 20 B/P (MAP) 150/96 (114) Pulse Ox 95 O2 Delivery Room Air 03/20/21 00:00 Intake Total 1000 ml Balance 1000 ml Capillary Refill : Less Than 3 Seconds Blood Pressure Mean: 114 Progress Note : Progress Note Patient examined and in no acute distress. Orders placed for Covid, flu, chest x-ray.She is in no respiratory distress, vital signs are stable oxygen saturation 98% on room air. COVID and fluid negative. CXR neg for acute pathology. Reviewed findings and discharge plan with her and she is agreeable with plan. After RN removed IV and took discharge vitals, patient reported feeling dizzy, nauseated, and sweaty. SBP noted to drop to mid 90's. Initiated cardiac workup a s she reports tightening sensation in her left upper chest. States she has been having intermittent episodes for the past week and it feels as if a muscle is trying to spasm. EKG SR, rate 91, no ST segment elevation or depression. Initial cardiac workup neg however she is noted to have elevated d-dimer. With her tachycardia and chest discomfort, will obtain CTa chest. Reviewed r isk/benefits of obtaining CTa chest with patient. She is agreeable with exam. Repeat EKG Sinus Tach, no ST segment elevation or depression. Will do 3 hour repeat of cardiac enzymes. CT angio/chest neg for acute PE. Does show left upper and lower lobe pneumonia. Repeat troponin neg. Her left upper lobe pneumonia can be contributory to her left upper chest discomfort. States he chest discomfort is no longer present. VSS. Reviewed discharge POC and she is agreeable with plan. ECG Initial ECG Impression Date: Mar 19, 2021 Initial ECG Impression Time: 13:31 Initial ECG Rate: 91 Initial ECG Rhythm: Normal Sinus Initial ECG Intervals: Normal Initial ECG Impression: Normal EKG : EKG Time: 14:03 Rate: 100 Rhythm: S.Tach Intervals: Normal ECG Comparisson: Unchanged ECG Impression: Normal Diagnostic Imaging Diagonstic Imaging: Xray Plain Films/CT/US/NM/MRI: chest [facility] [place] [place] NAME: MAURO SUE [facility] REC#: [id number] PT STATUS: REG ER : 1965 PHYSICIAN: PARMINDER MCCOY STRAIGHTENER ADMIT DATE: 03/19/21/ER Signed Date of Exam:03/19/21 CHEST 1 VIEW, AP/PA ONLY EXAMINATION: Chest 1 view HISTORY: Short of breath COMPARISON: None available. FINDINGS: The lungs are clear without edema or pneumonia. No pleural effusion or pneumothorax. Heart size is normal. IMPRESSION: 1. Clear lungs. Dictated by: Dictated on workstation # [id number] Dict: 03/19/21 1249 Trans: 03/19/21 1443 [facility] [id number] Interpreted by: ANTOINE GARDNER MD Electronically signed by: ANTOINE GARDNER MD 03/19/21 1441 Reviewed: Reviewed by Wa Diagonstic Imaging: CT Plain Films/CT/US/NM/MRI: chest Comments [facility] NAME: MAURO SUE [facility] REC#: [id number] PT STATUS: REG ER : 1965 PHYSICIAN: PARMINDER MCCOY STRAIGHTENER ADMIT DATE: 03/19/21/ER Signed Date of Exam:03/19/21 CT ANGIO CHEST W PROCEDURE: CT angiography of the chest with contrast. TECHNIQUE: Multiple contiguous axial images were obtained through the chest after uneventful bolus administration of intravenous contrast. 3D reconstructed CTA MIP acquisitions were also performed. Auto Exposure Controls were utilized during the CT exam to meet ALARA standards for radiation dose reduction. INDICATION: Shortness or air and chest discomfort. Patient also has elevated D-dimer and extremity swelling. No prior studies are available for comparison. Evaluation for pulmonary emboli is limited due to suboptimal opacification of the pulmonary arterial system. No definite central pulmonary emboli are detected. Thoracic aorta is normal caliber. There is no dissection. No pericardial or pleural fluid is identified. Parenchymal evaluation does show some patchy airspace infiltrates left upper lobe as well as the superior segment left lower lobe consistent with pneumonia. There is some scarring or atelectasis in the lingula. There is a small nodule in the right upper lobe measuring 7 mm, indeterminate. Upper abdomen is unremarkable. IMPRESSION: 1. Suboptimal study for evaluation of pulmonary emboli. No central emboli are detected. 2. Left upper lobe and left lower lobe pneumonia. 3. Subcentimeter right upper lobe pulmonary nodule. Followup CT chest in 6-12 months could be performed to confirm stability. Dictated by: Dictated on workstation # [id number] Dict: 03/19/21 1451 Trans: 03/19/21 1516 [facility] [id number] Interpreted by: NANCY XIONG MD Electronically signed by: NANCY XIONG MD 03/19/21 1516 Reviewed: Reviewed by Me Departure Impression Primary Impression: Pneumonia Additional Impressions: Rhinorrhea Cough Disposition: 01 HOME, SELF-CARE Condition: Stable Departure-Patient Inst. Decision time for Depature: 13:11 Referrals: ROCK SHEFFIELD MD (PCP/Family) Primary Care Physician Patient Instructions: Chronic Sinusitis, Seasonal Allergies (DC) Add. Discharge Instructions: Plan: 1. Drink plenty of fluids. Avoid high sodium foods. Keep follow up for your Echo and Stress test. 2. You can add Benadryl at bedtime to your daily routine to see if this helps with your sinus drainage. 3. Keep follow up with [facility] in March. 4. Take all of your antibiotics as directed and complete full course. Your skin may be more sensitive to sunlight while taking this medication. 5. Return for any new, concerning, or worsening symptoms. All discharge instructions reviewed with patient and/or family. Voiced understanding. Scripts Doxycycline Hyclate (Doxycycline Hyclate) 100 Mg Tablet 100 MG PO BID for 10 Days, #20 TAB 0 Refills Prov: PARMINDER MCCOY STRAIGHTENER 03/19/21 PARMINDER MCCOY STRAIGHTENER Mar 19, 2021 12:33
--- NOTE | 2021-03-19 12:50 | Diagnostic Imaging Report ---
EXAMINATION: Chest 1 view HISTORY: Short of breath COMPARISON: None available. FINDINGS: The lungs are clear without edema or pneumonia. No pleural effusion or pneumothorax. Heart size is normal. IMPRESSION: 1. Clear lungs. Dictated by: Dictated on workstation # [id number]
[2021-03-19 12:59] LABS: BILIRUBIN,URINE NEGATIVE (NEGATIVE); CLARITY,URINE SL CLOUDY; COLOR,URINE YELLOW; GLUCOSE, URINE (UA) NEGATIVE (NEGATIVE); KETONES,URINE TRACE (NEGATIVE); LEUKOCYTE ESTERASE ,URINE NEGATIVE (NEGATIVE); NITRITE,URINE NEGATIVE (NEGATIVE); PH,URINE 6.5 (5-9); PROTEIN,URINE TRACE (NEGATIVE)
[2021-03-19] MEDS ORDERED: NS IV 1000 ML 1,000 ML ONE (13:31)
[2021-03-19 13:42] LABS: BASOPHILS # (AUTO) 0.1 10^3/uL (0.0-0.1); BASOPHILS % (AUTO) 1 % (0-10); EOSINOPHILS # (AUTO) 0.4 10^3/uL (0.0-0.3); EOSINOPHILS % (AUTO) 4 % (0-10); HEMATOCRIT 38 % (35-52); HEMOGLOBIN 11.5 g/dL (11.5-16.0); LYMPHOCYTES # (AUTO) 0.8 10^3/uL (1.0-4.0); LYMPHOCYTES % (AUTO) 8 % (12-44); MEAN CORPUSCULAR HEMOGLOBIN 26 pg (25-34); MEAN CORPUSCULAR HGB CONC 31 g/dL (32-36); MEAN CORPUSCULAR VOLUME 84 fL (80-99); MEAN PLATELET VOLUME 9.7 fL (9.0-12.2); MONOCYTES # (AUTO) 0.7 10^3/uL (0.0-1.0); MONOCYTES % (AUTO) 7 % (0-12); NEUTROPHILS # (AUTO) 8.7 10^3/uL (1.8-7.8); NEUTROPHILS % (AUTO) 81 % (42-75); PLATELET COUNT 271 10^3/uL (130-400); WHITE BLOOD COUNT 10.8 10^3/uL (4.3-11.0)
[2021-03-19 13:42] LABS: AMORPHOUS SEDIMENT,UR FEW AMOR URATES /LPF; BACTERIA,URINE TRACE /HPF
[2021-03-19] MEDS ORDERED: NS IV 1000 ML 1,000 ML IV SCH (13:45)
[2021-03-19] MEDS ORDERED: ASPIRIN 81 MG CHEW (CHILDREN'S ASA) PO ONE (13:45)
[2021-03-19 14:01] LABS: ALBUMIN 3.6 GM/DL (3.2-4.5); BILIRUBIN,TOTAL 0.7 MG/DL (0.1-1.0); CALCIUM 9.1 MG/DL (8.5-10.1); CREATININE SERUM 0.8 MG/DL (0.60-1.30); MAGNESIUM 2.1 MG/DL (1.6-2.4)
[2021-03-19 14:04] LABS: FIBRIN DEGRADATION PRODUCTS 1.81 UG/ML (0.00-0.49); PROTHROMBIN TIME PATIENT 13.2 SEC (12.2-14.7)
[2021-03-19 14:12] LABS: BASOPHILS % (MANUAL) 1 %; EOSINOPHILS % (MANUAL) 4 %; LYMPHOCYTES % (MANUAL) 5 %; MONOCYTES % (MANUAL) 6 %; NEUTROPHILS % (MANUAL) 84 %; RBC MORPH NORMAL
[2021-03-19] MEDS ORDERED: HOLD METFORMIN - RECEIVED CONTRAST 20 ML VIAL IV SCH (14:30)
[2021-03-19] MEDS ORDERED: IOHEXOL 350 MG/ML 100 ML (OMNIPAQUE 350) VIAL IV ONE (14:30)
[2021-03-19] MEDS ORDERED: NS 100 ML (IVPB) BAG IV ONE (14:30)
--- NOTE | 2021-03-19 14:59 | Diagnostic Imaging Report ---
PROCEDURE: CT angiography of the chest with contrast. TECHNIQUE: Multiple contiguous axial images were obtained through the chest after uneventful bolus administration of intravenous contrast. 3D reconstructed CTA MIP acquisitions were also performed. Auto Exposure Controls were utilized during the CT exam to meet ALARA standards for radiation dose reduction. INDICATION: Shortness or air and chest discomfort. Patient also has elevated D-dimer and extremity swelling. No prior studies are available for comparison. Evaluation for pulmonary emboli is limited due to suboptimal opacification of the pulmonary arterial system. No definite central pulmonary emboli are detected. Thoracic aorta is normal caliber. There is no dissection. No pericardial or pleural fluid is identified. Parenchymal evaluation does show some patchy airspace infiltrates left upper lobe as well as the superior segment left lower lobe consistent with pneumonia. There is some scarring or atelectasis in the lingula. There is a small nodule in the right upper lobe measuring 7 mm, indeterminate. Upper abdomen is unremarkable. IMPRESSION: 1. Suboptimal study for evaluation of pulmonary emboli. No central emboli are detected. 2. Left upper lobe and left lower lobe pneumonia. 3. Subcentimeter right upper lobe pulmonary nodule. Followup CT chest in 6-12 months could be performed to confirm stability. Dictated by: Dictated on workstation # [id number]
[2021-03-19] MEDS ORDERED: DOXY100T2 PO (15:55)
[2021-03-19] MEDS ORDERED: DOXYCYCLINE 100 MG (VIBRAMYCIN) TABLET PO ONE (16:00)
[2021-03-19 16:04] VITALS: BP 150/96
== END 2021-03-19 16:04 | disposition home or self-care (01) ==
LOC: ER 12:00
DX: J18.9 Pneumonia, unspecified organism (principal); J34.89 Other specified disorders of nose and nasal sinuses; R05 Cough; Z20.822 Contact with and (suspected) exposure to COVID-19
CPT/HCPCS: 36415; 71045; 71275; 80053; 81000; 83735; 83874; 84484; 85007; 85027; 85379; 85610; 85730; 87636; 93005; 93041

== ENCOUNTER 2021-05-31 21:53 | Emergency (ER) | payer BC ==
[~2021-05-31] VITALS: Ht 160 cm; Wt 150.0 kg
[~2021-05-31 21:53] MED LIST changes: +DOXY100T2 PO
--- NOTE | 2021-05-31 22:17 | ED Lower Extremity ---
General Chief Complaint: Lower Extremity Stated Complaint: R LEG REDNESS/SWELLING Nursing Triage Note: Pt ambulatory to ER with complaint of R. Lower leg swelling/pain for one hour. Pt states that she was getting up to go to bed, and noticed her leg was swollen and had some pain. Pt states that she drove from [place] to the ER here. Pt rates pain at a 6/10. Pt has no obvious swelling noted. Source: patient History of Present Illness Date Seen by Provider: May 31, 2021 Time Seen by Provider: 22:00 Initial Comments PT ARRIVES VIA POV FROM HOME IN [facility] AN HOUR AGO, SHE GOT UP TO GO TO BED, AND NOTICED REDNESS AND SWELLING TO UPPER/LATERAL ASPECT OF HER RIGHT LOWER LEG NO KNOWN INJURY PT HAS HAD SOME ONGOING SWELLING TO LEGS, BUT DOES NOT TAKE ANYTHING FOR SWELLING NO ASPIRIN OR BLOOD THINNERS NO CHEST PAIN OR SHORTNESS OF BREATH NO FEVER NO PARESTHESIAS OR MOTOR DEFICITS PT SITS ALL DAY AT WORK PT STATES HER ONLY MEDICAL PROBLEMS ARE SLEEP APNEA AND HYPOTHYROIDISM PT WAS SUPPOSED TO HAVE A "SCREENING" CARDIAC CATH AND ECHOCARDIOGRAM BY DR. JOHNSON IN MARCH, THIS WAS RESCHEDULED FOR 06/15/[address] JOHNSON OR ANY CORD CUTTER STATES SHE IS HAVING IT DONE BECAUSE HER BROTHER AT AGE 53 OF A HEART ATTACK. PCP: DR. SHEFFIELD, [facility] Allergies and Home Medications Allergies Coded Allergies: Penicillins (Verified Allergy, Unknown, RASH, 12/13/17) Patient Home Medication List Home Medication List Reviewed: Yes Baclofen (Baclofen) 10 Mg Tablet, 10 MG PO BID PRN for MUSCLE SPASMS Prescribed by: PEDRITO SANTIAGO on 09/15/20 1035 Doxycycline Hyclate (Doxycycline Hyclate) 100 Mg Tablet, 100 MG PO BID Prescribed by: PARMINDER MCCOY on 03/19/21 1555 Ibuprofen (Ibuprofen) 800 Mg Tablet, 800 MG PO Q8H PRN for PAIN Prescribed by: PEDRITO SANTIAGO on 09/15/20 1035 Review of Systems Constitutional: no symptoms reported Respiratory: no symptoms reported Cardiovascular: no symptoms reported Gastrointestinal: no symptoms reported Genitourinary: no symptoms reported Control/STD Prophylaxis: Other (HYSTERECTOMY) Musculoskeletal: see HPI Skin: see HPI Psychiatric/Neurological: No Symptoms Reported Past Oyealoh-Kjotwp-Ghrwru Hx Patient Social History Tobacco Use?: No Use of E-Cig and/or Vaping dev: No Substance use?: No Alcohol Use?: No Pt feels they are or have been: No Immunizations Up To Date Influenza Vaccine Up-to-Date: No; Not Current First/Initial COVID19 Vaccinat: NOVEMBER 2020 Second COVID19 Vaccination Richy: DECEMBER 2020 COVID19 Vaccine Vessel Engineer: Moderna Seasonal Allergies Seasonal Allergies: Yes Past Medical History Surgeries: Yes (ankle sx, shoulder sx, lipomas removed, ) Gallbladder, Hysterectomy, Oophorectomy, Orthopedic, Tonsillectomy Respiratory: Yes (DYSPNEA ON EXERTION AND ORTHOPNEA) Sleep Apnea Currently Using CPAP: Yes Cardiac: No Neurological: No Reproductive Disorders: Yes Female Reproductive Disorders: Menstrual Problems 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: Hysterectomy Genitourinary: No Gastrointestinal: Yes (CHOLECYSTECTOMY) Gall Bladder Disease Musculoskeletal: Yes (LEFT ANKLE AND LEFT SHOULDER SURGERIES) Arthritis Endocrine: Yes (OBESITY) Hypothyroidsim HEENT: No Cancer: No Psychosocial: No Integumentary: No Blood Disorders: Yes (anemia) Family Medical History Alcoholism 19 FATHER Asthma 19 MOTHER Cardiovascular disease 19 MOTHER Diabetes mellitus 19 MOTHER FH: throat cancer 19 FATHER Hypertension 19 FATHER 19 MOTHER Myocardial infarction G8 BROTHER Respiratory disorder 19 MOTHER PAST SURGICAL HISTORY: -TONSILLECTOMY -CHOLECYSTECTOMY -HYSTERECTOMY/BILATERAL SALPINGO-OOPHORECTOMY -LEFT SHOULDER SURGERY -LEFT ANKLE SURGERY -LIPOMAS REMOVED Physical Exam Vital Signs Vital Signs - First Documented 05/31/21 22:01 Temp 36.5 Pulse 94 Resp 20 B/P (MAP) 164/109 (127) Pulse Ox 98 O2 Delivery Room Air Capillary Refill : Less Than 3 Seconds Height, Weight, BMI Height: 5'3.00" Weight: 327lbs. 0.0oz. 148.483534pi; 58.00 BMI Method: General Appearance: no apparent distress, obese, other (WALKS WITHOUT DIFFICULTY) Cardiovascular: normal peripheral pulses, regular rate, rhythm, no murmur Respiratory: normal breath sounds Hips: bilateral hip normal inspection Legs: left leg normal inspection; right leg other (RIGHT LOWER LEG--UPPER/LATERAL ASPECT WITH 10 CM AREA OF SWELLING, TENDERNESS AND FAINT PATCHY ERYTHEMA. NO CORDING. NO CALF TENDERNESS. NEGATIVE TIANA'S. BOTH LEGS HAVE TRACE EDEMA DISTALLY. MOTOR/SENSORY/VASCULAR INTACT. ) Knees: bilateral knee normal inspection Ankles: bilateral ankle normal inspection Feet: bilateral foot normal inspection Neurologic/Tendon: normal sensation, normal motor functions, normal tendon functions Neurologic/Psychiatric: custodian blood bank II-XII nml as tested, no motor/sensory deficits, alert, normal mood/affect, oriented x 3 Skin: normal color, warm/dry, other ( ABOVE) Progress/Results/Core Measures Results/Orders Lab Results Laboratory Tests Test 05/31/21 22:30 Range/Units White Blood Count 7.7 4.3-11.0 10^3/uL Red Blood Count 4.48 3.80-5.11 10^6/uL Hemoglobin 11.4 L 11.5-16.0 g/dL Hematocrit 37 35-52 % Mean Corpuscular Volume 82 80-99 fL Mean Corpuscular Hemoglobin 25 25-34 pg Mean Corpuscular Hemoglobin Concent 31 L 32-36 g/dL Red Cell Distribution Width 14.6 H 10.0-14.5 % Platelet Count 287 130-400 10^3/uL Mean Platelet Volume 9.4 9.0-12.2 fL Immature Granulocyte % (Auto) 1 % Neutrophils (%) (Auto) 56 42-75 % Lymphocytes (%) (Auto) 28 12-44 % Monocytes (%) (Auto) 10 0-12 % Eosinophils (%) (Auto) 6 0-10 % Basophils (%) (Auto) 1 0-10 % Neutrophils # (Auto) 4.3 1.8-7.8 10^3/uL Lymphocytes # (Auto) 2.1 1.0-4.0 10^3/uL Monocytes # (Auto) 0.8 0.0-1.0 10^3/uL Eosinophils # (Auto) 0.5 H 0.0-0.3 10^3/uL Basophils # (Auto) 0.1 0.0-0.1 10^3/uL Immature Granulocyte # (Auto) 0.0 0.0-0.1 10^3/uL Erythrocyte Sedimentation Rate 31 H 0-30 MM/HR D-Dimer 1.22 H 0.00-0.49 UG/ML Sodium Level 141 135-145 MMOL/L Potassium Level 4.0 3.6-5.0 MMOL/L Chloride Level 108 H 98-107 MMOL/L Carbon Dioxide Level 21 21-32 MMOL/L Anion Gap 12 5-14 MMOL/L Blood Urea Nitrogen 14 7-18 MG/DL Creatinine 0.79 0.60-1.30 MG/DL Estimat Glomerular Filtration Rate 76 BUN/Creatinine Ratio 18 Glucose Level 94 70-105 MG/DL Calcium Level 9.8 8.5-10.1 MG/DL Corrected Calcium 10.0 8.5-10.1 MG/DL Total Bilirubin 0.4 0.1-1.0 MG/DL Aspartate Amino Transf (AST/SGOT) 62 H 5-34 U/L Alanine Aminotransferase (ALT/SGPT) 76 H 0-55 U/L Alkaline Phosphatase 113 40-136 U/L C-Reactive Protein High Sensitivity 0.38 0.00-0.50 MG/DL B-Type Natriuretic Peptide < 10.0 <100.0 PG/ML Total Protein 7.2 6.4-8.2 GM/DL Albumin 3.8 3.2-4.5 GM/DL My Orders Orders - BHAVIK GALE DO Ed Iv/Invasive Line Start (05/31/21 22:01) BNP (05/31/21 22:01) Cbc With Automated Diff (05/31/21 22:01) Comprehensive Metabolic Panel (05/31/21 22:01) Hs C Reactive Protein (05/31/21 22:01) Fibrin Degradation Products (05/31/21 22:01) Erythrocyte Sedimentation Rate (05/31/21 22:01) Enoxaparin Injection (Lovenox Injection) (05/31/21 23:45) Enoxaparin Injection (Lovenox Injection) (05/31/21 23:45) Medications Given in ED Current Medications Medications Dose Ordered Sig/Viraj Route Start Time Stop Time Status Last Admin Dose Admin Enoxaparin Sodium 50 mg ONCE ONCE SC 05/31/21 23:45 05/31/21 23:46 DC 05/31/21 23:55 50 MG Enoxaparin Sodium 100 mg ONCE ONCE SC 05/31/21 23:45 05/31/21 23:46 DC 05/31/21 23:55 100 MG Vital Signs/I&O 05/31/21 05/31/21 22:01 23:58 Temp 36.5 36.2 Pulse 94 79 Resp 20 16 B/P (MAP) 164/109 (127) 141/99 Pulse Ox 98 99 O2 Delivery Room Air Room Air Blood Pressure Mean: 127 Progress Progress Note : Progress Note NO ULTRASOUND AVAILABLE HERE AT THIS TIME WILL TREAT EMPIRICALLY WITH A DOSE OF LOVENOX OUTPATIENT ULTRASOUND ORDERED PT TO FOLLOW UP WITH DR. SHEFFIELD TOMORROW FOR FURTHER CARE Departure Impression Primary Impression: Pain and swelling of right lower leg Disposition: HOME, SELF-CARE Condition: Stable Departure-Patient Inst. Decision time for Depature: 23:45 Referrals: ROCK SHEFFIELD MD (PCP/Family) Primary Care Physician Patient Instructions: Deep Vein Thrombosis (DVT) ED, Dependent Edema (DC) Add. Discharge Instructions: ALTERNATE ICE AND HEAT TO AREA AT 20 MINUTE INTERVALS ALEX WRAP OR THIGH HIGH BRADLEY HOSE TO BOTH LEGS ELEVATE LEGS MUCH POSSIBLE TYLENOL AND MOTRIN NEEDED FOR PAIN CALL IN THE MORNING TO SCHEDULE OUTPATIENT ULTRASOUND FOLLOW UP WITH [facility] TOMORROW FOR FURTHER CARE All discharge instructions reviewed with patient and/or family. Voiced understanding. Images Extremities-Lower 1 - Mild, Swelling, Tenderness BHAVIK GALE DO May 31, 2021 22:17
[2021-05-31 22:40] LABS: BASOPHILS # (AUTO) 0.1 10^3/uL (0.0-0.1); BASOPHILS % (AUTO) 1 % (0-10); EOSINOPHILS # (AUTO) 0.5 10^3/uL (0.0-0.3); EOSINOPHILS % (AUTO) 6 % (0-10); HEMATOCRIT 37 % (35-52); HEMOGLOBIN 11.4 g/dL (11.5-16.0); LYMPHOCYTES # (AUTO) 2.1 10^3/uL (1.0-4.0); LYMPHOCYTES % (AUTO) 28 % (12-44); MEAN CORPUSCULAR HEMOGLOBIN 25 pg (25-34); MEAN CORPUSCULAR HGB CONC 31 g/dL (32-36); MEAN CORPUSCULAR VOLUME 82 fL (80-99); MEAN PLATELET VOLUME 9.4 fL (9.0-12.2); MONOCYTES # (AUTO) 0.8 10^3/uL (0.0-1.0); MONOCYTES % (AUTO) 10 % (0-12); NEUTROPHILS # (AUTO) 4.3 10^3/uL (1.8-7.8); NEUTROPHILS % (AUTO) 56 % (42-75); PLATELET COUNT 287 10^3/uL (130-400); WHITE BLOOD COUNT 7.7 10^3/uL (4.3-11.0)
[2021-05-31 22:59] LABS: ERYTHROCYTE SEDIMENTATION RATE 31 MM/HR (0-30)
[2021-05-31 23:34] LABS: ALBUMIN 3.8 GM/DL (3.2-4.5)
[2021-05-31 23:35] LABS: CALCIUM 9.8 MG/DL (8.5-10.1)
[2021-05-31 23:37] LABS: TOTAL PROTEIN 7.2 GM/DL (6.4-8.2)
[2021-05-31 23:38] LABS: BILIRUBIN,TOTAL 0.4 MG/DL (0.1-1.0)
[2021-05-31 23:40] LABS: CREATININE SERUM 0.79 MG/DL (0.60-1.30)
[2021-05-31] MEDS ORDERED: ENOXAPARIN 60 MG/0.6 ML (LOVENOX) SYR SC ONE (23:45)
[2021-05-31] MEDS ORDERED: ENOXAPARIN 100 MG/1 ML (LOVENOX) SYR SC ONE (23:45)
[2021-05-31 23:58] VITALS: BP 141/99
== END 2021-06-01 00:02 | disposition home or self-care (01) ==
LOC: EDUNIT# 21:53 → ER 21:54
DX: M79.661 Pain in right lower leg (principal); M79.89 Other specified soft tissue disorders; G47.30 Sleep apnea, unspecified; E66.9 Obesity, unspecified; Z68.43 Body mass index [BMI] 50.0-59.9, adult
CPT/HCPCS: 36415; 80053; 83880; 85025; 85379; 85652; 86141

== ENCOUNTER → 2021-06-15 | Outpatient (CLI) | payer BC ==
[~2021-06-15] MED LIST changes: +CETI10TA17 PO; +LEVO125T6 PO
== END ==
LOC: CARD 10:00
PROVIDERS: ATTEND Family Medicine
DX: R22.43 Localized swelling, mass and lump, lower limb, bilateral (principal); Z82.49 Family history of ischemic heart disease and other diseases of the circulatory system
CPT/HCPCS: 93306

== ENCOUNTER → 2021-06-16 | Outpatient (CLI) | payer BC ==
[~2021-06-16] MED LIST changes: +CATHETER FLUSH 10 ML SYR IV PRN
[2021-06-16 08:07] VITALS: BP 115/74
--- NOTE | 2021-06-17 08:29 | Cardiology Stress Test Report ---
Stress Test Report Date of Procedure/Referring: Date of Procedure: Jun 17, 2021 PCP Sarahi Rodriguez MD Admitting Physician Freddy Whitlock MD Indications: CP Baseline Heart Rate: 80 Baseline Blood Pressure: Blood Pressure Systolic: 115 Blood Pressure Diastolic: 74 Vital Signs Date Time Temp Pulse Resp B/P (MAP) Pulse Ox O2 Delivery O2 Flow Rate FiO2 06/16/21 08:07 80 115/74 (88) 98 Baseline Vital Signs Vital Signs Date Time Temp Pulse Resp B/P (MAP) Pulse Ox O2 Delivery O2 Flow Rate FiO2 06/16/21 08:07 80 115/74 (88) 98 Baseline EKG: Baseline EKG: NSR Summary: After explaining the procedure and details to the patient, she signed the consent and was brought to the stress nuclear laboratory. Patient exercised on standard Josias protocol, EKG, heart rate and blood pressure were monitored continuously, resting and stress doses of radio tracer were injected, imaging was acquired and reviewed in the short axis, horizontal long axis and vertical long axis views Patient was able to exercise for a total of 4 minutes on Josias protocol, METs 5.8 Maximum heart rate 158 Maximum blood pressure 165/74 Stress EKG, Minimal nondiagnostic changes Recovery EKG, Return to baseline TID: 1.17 SSS: 2 SDS: 2 EF: 69 Conclusion: 1. Poor exercise tolerance for 4 minutes on standard Josias protocol, 5.8 METS, achieving 95% of maximal expected heart rate 2. Minimal nondiagnostic EKG changes with exercise with [address] depression in lead II, 3, aVF return to baseline during recovery 3. Ventricular couplets noted at minute 1.30 of recovery otherwise no arrhythmia was noted 4. Breast attenuation with typical female pattern no significant ischemia or infarction on SPECT images 5. Normal left ventricular size, EF 69% ROBER JOHNSON MD Jun 17, 2021 08:29
== END ==
LOC: CARD 07:00
PROVIDERS: ATTEND Family Medicine
DX: R07.9 Chest pain, unspecified (principal); R22.43 Localized swelling, mass and lump, lower limb, bilateral; Z82.49 Family history of ischemic heart disease and other diseases of the circulatory system
CPT/HCPCS: 78452; 93017; A9502

== ENCOUNTER → 2021-08-15 | Outpatient (CLI) | payer BC ==
[~2021-08-15] MED LIST changes: -CATHETER FLUSH 10 ML SYR IV PRN
--- NOTE | 2021-08-15 12:25 | Diagnostic Imaging Report ---
INDICATION: Routine screening. COMPARISON: 02/14/2018 and 04/02/2014. TECHNIQUE: 2D and 3D bilateral screening mammography was performed with CAD. FINDINGS: Scattered fibroglandular densities are identified bilaterally. The parenchymal pattern is stable. No mass or malignant-appearing microcalcifications are seen. The axillae are unremarkable. IMPRESSION: No mammographic features suspicious for malignancy are identified. ACR BI-RADS Category 1: Negative. Result letter will be mailed to the patient. Note: At least 10% of breast cancer is not imaged by mammography. Dictated by: Dictated on workstation # [id number]
== END ==
LOC: RAD 09:15
PROVIDERS: ATTEND Surgery
DX: Z12.31 Encounter for screening mammogram for malignant neoplasm of breast (principal)
CPT/HCPCS: 77063; 77067

== ENCOUNTER → 2021-10-24 | Outpatient (CLI) | payer BC ==
--- NOTE | 2021-10-24 14:19 | Diagnostic Imaging Report ---
INDICATION: Right knee pain. FINDINGS: Three views of the right knee show no fracture, dislocation, or other acute abnormalities. There is mild narrowing of the medial tibiofemoral joint space with small osteophytes forming at the medial articular margins. IMPRESSION: Mild degenerative changes in the medial compartment, right knee. Dictated by: Dictated on workstation # [id number]
== END ==
LOC: RAD FS 13:16
PROVIDERS: ATTEND Nurse Practitioner
DX: M17.11 Unilateral primary osteoarthritis, right knee (principal)
CPT/HCPCS: 73562

== ENCOUNTER → 2022-04-27 | Outpatient (CLI) | payer BC ==
--- NOTE | 2022-04-27 18:48 | Diagnostic Imaging Report ---
INDICATION: Osteoarthritis Three views were obtained. FINDINGS: The alignment is normal. There is some degenerative narrowing of the medial knee joint compartment. There is no fracture or dislocation. Soft tissues are unremarkable. IMPRESSION: Mild degenerative changes, otherwise unremarkable. Dictated by: Dictated on workstation # [id number]
== END ==
LOC: RAD FS 14:11
PROVIDERS: ATTEND Nurse Practitioner
DX: M17.11 Unilateral primary osteoarthritis, right knee (principal); S80.01XA Contusion of right knee, initial encounter; M70.51 Other bursitis of knee, right knee
CPT/HCPCS: 73562

== ENCOUNTER 2022-07-26 17:14 | Emergency (ER) | payer OTHER, BC ==
[2022-07-26] MEDS ORDERED: ORPHENADRINE 60 MG/2 ML (NORFLEX) AMP (ED ONLY) IM STA (17:32)
[2022-07-26] MEDS ORDERED: KETOROLAC 60 MG/2 ML VIAL IM STA (17:32)
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
[2022-07-26] MEDS ORDERED: IBUP-1780 PO (19:19)
[2022-07-26] MEDS ORDERED: METH-732 PO (19:19)
[2022-07-26 19:25] VITALS: BP 125/79
== END 2022-07-26 19:30 | disposition home or self-care (01) ==
LOC: EDUNIT# 17:14 → ER FS 17:15
DX: S39.012A Strain of muscle, fascia and tendon of lower back, initial encounter (principal); S29.012A Strain of muscle and tendon of back wall of thorax, initial encounter; S70.02XA Contusion of left hip, initial encounter; S40.022A Contusion of left upper arm, initial encounter; S20.214A Contusion of middle front wall of thorax, initial encounter; S40.212A Abrasion of left shoulder, initial encounter; G47.30 Sleep apnea, unspecified; E66.9 Obesity, unspecified; Z98.890 Other specified postprocedural states; Z68.44 Body mass index [BMI] 60.0-69.9, adult; Z99.89 Dependence on other enabling machines and devices; V89.2XXA Person injured in unspecified motor-vehicle accident, traffic, initial encounter; Y92.410 Unspecified street and highway as the place of occurrence of the external cause
CPT/HCPCS: 72125; 72128; 72131; 73000; 73502

== ENCOUNTER 2022-09-05 22:02 | Emergency (ER) | payer BC ==
[~2022-09-05] VITALS: Ht 160 cm; Wt 149.9 kg
[~2022-09-05 22:02] MED LIST changes: +METH-732 PO
[2022-09-05 22:13] LABS: BILIRUBIN,URINE NEGATIVE (NEGATIVE); CLARITY,URINE SL CLOUDY; COLOR,URINE YELLOW; GLUCOSE, URINE (UA) NEGATIVE (NEGATIVE); KETONES,URINE NEGATIVE (NEGATIVE); LEUKOCYTE ESTERASE ,URINE 3+ (NEGATIVE); NITRITE,URINE NEGATIVE (NEGATIVE); PROTEIN,URINE NEGATIVE (NEGATIVE)
[2022-09-05] MEDS ORDERED: NS IV 1000 ML 1,000 ML IV STA (22:15)
[2022-09-05] MEDS ORDERED: cefTRIAXone 1 GM PRE-MIX 50 ML IV STA (22:15)
[2022-09-05] MEDS ORDERED: KETOROLAC 30 MG/ML VIAL IVP STA (22:15)
[2022-09-05 22:19] LABS: BACTERIA,URINE MODERATE /HPF; SQUAMOUS EPITHELIAL CELL,UR 0-2 /HPF; WBC,URINE 25-50 /HPF
--- NOTE | 2022-09-05 22:22 | ED GU-Female ---
General Stated Complaint: UTI SYMPTOMS Source: patient History of Present Illness Date Seen by Provider: Sep 05, 2022 Time Seen by Provider: 22:06 Initial Comments 57 yo female presenting with complaints of urinary frequency and urgency that started yesterday and progressed throughout today. She was having chills this evening and noticed that her heart rate was going up. She started having a headache and feeling bad. She had 1 episode of vomiting with she was trying to drink a lot of water. She has had issues with her kidneys and urine infections previously and states usually she can manage a lot of it by drinking more water. She notes that she does not drink enough water usually. She denied having a fever but did not take her temperature when she had her chills. She took 2 aspirin at the time to help treat her symptoms. She does take ibuprofen daily for arthritis pain in her knee. She was having some pain in the left flank and kidney. She denies having any diarrhea, constipation, abdominal pain, chest pain, cough, blood in her urine. She was going to try to hold out until the morning when urgent care opened but with her chills and feeling worse in addition to the heart rate getting faster she came to the ED to be seen. Timing/Duration: yesterday Severity/Quality: severe, cramping Location: left flank Activities at Onset: none Prior Genitourinary Problems: similar symptoms Sexual [place] History: not active Modifying Factors: Worsens With Movement, Worsens With Urinating Associated Symptoms: No abdominal pain, No diaphoresis; dysuria, fever/chills; No loss of bladder control, No lower back pain, No lumps, No mass; nausea/vomiting (x 1); No nocturia, No polyuria, No swelling, No syncope; urinary frequency Allergies and Home Medications Allergies Coded Allergies: Penicillins (Verified Allergy, Unknown, RASH, 09/05/22) Can take Amoxicillin without problems Patient Home Medication List Home Medication List Reviewed: Yes Cetirizine HCl (Cetirizine HCl) 10 Mg Tablet, 10 MG PO DAILY, (Reported) Entered as Reported by: OMERO HERNANDEZ on 06/17/21957 Ibuprofen (Ibuprofen) 800 Mg Tablet, 800 MG PO Q8H PRN for PAIN-MILD (1-4), (Reported) Entered as Reported by: OMERO HERNANDEZ on 06/17/21957 Ibuprofen (Ibuprofen) 800 Mg Tablet, 800 MG PO Q8H PRN for PAIN Prescribed by: PEDRITO SANTIAGO on 07/26/221918 Levothyroxine Sodium (Levothyroxine Sodium) 125 Mcg Tablet, 125 MCG PO DAILY, (Reported) Entered as Reported by: OMERO HERNANDEZ on 06/17/21 0958 Methocarbamol (Methocarbamol) 750 Mg Tablet, 1,500 MG PO Q8H PRN for muscle spasms Prescribed by: PEDRITO SANTIAGO on 07/26/221918 Nitrofurantoin Monohyd/M-Cryst (Macrobid 100 mg Capsule) 100 Mg Capsule, 1 TAB PO BID Prescribed by: PEDRITO SANTIAGO on 09/05/22 2316 Review of Systems Review of Systems Constitutional: chills, malaise EENTM: no symptoms reported Respiratory: short of breath Cardiovascular: palpitations Gastrointestinal: see HPI Genitourinary: see HPI, burning, frequency, flank pain (left side), urgency Musculoskeletal: see HPI (generalized body aches) Skin: No rash Psychiatric/Neurological: Headache Past Vpswbmf-Ozvokm-Xpdvad Hx Immunizations Up To Date First/Initial COVID19 Vaccinat: November 2020 Second COVID19 Vaccination Richy: November 2020 Third COVID19 Vaccination Date: November 2020 Seasonal Allergies Seasonal Allergies: Yes Past Medical History Surgery/Hospitalization HX: Hypothyroidism; Arthritis Surgeries: Yes (ankle sx, shoulder sx, lipomas removed, ) Gallbladder, Hysterectomy, Oophorectomy, Orthopedic, Tonsillectomy Respiratory: Yes (DYSPNEA ON EXERTION AND ORTHOPNEA) Sleep Apnea Currently Using CPAP: Yes Cardiac: No Neurological: No Reproductive Disorders: Yes Female Reproductive Disorders: Menstrual Problems 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 Genitourinary: No Gastrointestinal: Yes (CHOLECYSTECTOMY) Gall Bladder Disease Musculoskeletal: Yes (LEFT ANKLE AND LEFT SHOULDER SURGERIES) Arthritis Endocrine: Yes (OBESITY) Hypothyroidsim HEENT: No Cancer: No Psychosocial: No Integumentary: No Blood Disorders: Yes (anemia) Family Medical History Alcoholism 19 FATHER Asthma 19 MOTHER Cardiovascular disease 19 MOTHER Diabetes mellitus 19 MOTHER FH: throat cancer 19 FATHER Hypertension 19 FATHER 19 MOTHER Myocardial infarction G8 BROTHER Premature coronary artery disease Respiratory disorder 19 MOTHER No Pertinent Family Hx PAST SURGICAL HISTORY: -TONSILLECTOMY -CHOLECYSTECTOMY -HYSTERECTOMY/BILATERAL SALPINGO-OOPHORECTOMY -LEFT SHOULDER SURGERY -LEFT ANKLE SURGERY -LIPOMAS REMOVED Physical Exam Vital Signs Vital Signs - First Documented 09/05/22 22:05 Temp 36.8 Pulse 137 Resp 22 B/P (MAP) 123/57 (79) Pulse Ox 97 O2 Delivery Room Air Capillary Refill : Height, Weight, BMI Height: 5'3.00" Weight: 327lbs. 0.0oz. [id number]; 60.39 BMI Method: General Appearance: mild distress, obese HEENT: pharynx normal Cardiovascular: normal peripheral pulses, tachycardia Respiratory: chest non-tender, lungs clear, normal breath sounds, no respiratory distress, no accessory muscle use Gastrointestinal: normal bowel sounds, non tender, soft, no pulsatile mass Back: CVA tenderness (L) Extremities: normal range of motion, normal capillary refill Neurologic/Psychiatric: alert, oriented x 3 Skin: normal color, warm/dry Focused Exam Lactate Level 09/05/22 22:20: Lactic Acid Level 2.16*H Lactic Acid Level Laboratory Tests Test 09/05/22 22:20 Lactic Acid Level 2.16 MMOL/L (0.50-2.00) *H Progress/Results/Core Measures Suspected Sepsis SIRS Temperature: Pulse: Respiratory Rate: Laboratory Tests 09/05/22 22:20: White Blood Count 14.7H Blood Pressure / Mean: 09/05/22 22:20: Lactic Acid Level 2.16*H Laboratory Tests 09/05/22 22:20: Creatinine 0.88, Platelet Count 275, Total Bilirubin 0.8 Results/Orders Lab Results Laboratory Tests Test 09/05/22 22:05 09/05/22 22:20 Range/Units Urine Color YELLOW Urine Clarity SL CLOUDY Urine pH 6.0 5-9 Urine Specific [place] <=1.005 1.016-1.022 Urine Protein NEGATIVE NEGATIVE Urine Glucose (UA) NEGATIVE NEGATIVE Urine Ketones NEGATIVE NEGATIVE Urine Nitrite NEGATIVE NEGATIVE Urine Bilirubin NEGATIVE NEGATIVE Urine Urobilinogen 0.2 < = 1.0 MG/DL Urine Leukocyte Esterase 3+ H NEGATIVE Urine RBC (Auto) 1+ H NEGATIVE Urine RBC NONE /HPF Urine WBC 25-50 H /HPF Urine Squamous Epithelial Cells 0-2 /HPF Urine Crystals NONE /LPF Urine Bacteria MODERATE H /HPF Urine Casts NONE /LPF Urine Mucus NEGATIVE /LPF Urine Culture Indicated YES White Blood Count 14.7 H 4.3-11.0 10^3/uL Red Blood Count 4.68 3.80-5.11 10^6/uL Hemoglobin 12.2 11.5-16.0 g/dL Hematocrit 38 35-52 % Mean Corpuscular Volume 80 80-99 fL Mean Corpuscular Hemoglobin 26 25-34 pg Mean Corpuscular Hemoglobin Concent 32 32-36 g/dL Red Cell Distribution Width 15.1 H 10.0-14.5 % Platelet Count 275 130-400 10^3/uL Mean Platelet Volume 9.2 9.0-12.2 fL Immature Granulocyte % (Auto) 0 % Neutrophils (%) (Auto) 83 H 42-75 % Lymphocytes (%) (Auto) 6 L 12-44 % Monocytes (%) (Auto) 9 0-12 % Eosinophils (%) (Auto) 1 0-10 % Basophils (%) (Auto) 0 0-10 % Neutrophils # (Auto) 12.2 H 1.8-7.8 10^3/uL Lymphocytes # (Auto) 0.9 L 1.0-4.0 10^3/uL Monocytes # (Auto) 1.3 H 0.0-1.0 10^3/uL Eosinophils # (Auto) 0.1 0.0-0.3 10^3/uL Basophils # (Auto) 0.1 0.0-0.1 10^3/uL Immature Granulocyte # (Auto) 0.1 0.0-0.1 10^3/uL Neutrophils % (Manual) 85 % Lymphocytes % (Manual) 5 % Monocytes % (Manual) 3 % Eosinophils % (Manual) 0 % Basophils % (Manual) 0 % Band Neutrophils 7 % Sodium Level 136 135-145 MMOL/L Potassium Level 3.6 3.6-5.0 MMOL/L Chloride Level 101 98-107 MMOL/L Carbon Dioxide Level 21 21-32 MMOL/L Anion Gap 14 5-14 MMOL/L Blood Urea Nitrogen 10 7-18 MG/DL Creatinine 0.88 0.60-1.30 MG/DL Estimat Glomerular Filtration Rate 77 BUN/Creatinine Ratio 11 Glucose Level 117 H 70-105 MG/DL Lactic Acid Level 2.16 *H 0.50-2.00 MMOL/L Calcium Level 9.7 8.5-10.1 MG/DL Corrected Calcium 9.8 8.5-10.1 MG/DL Total Bilirubin 0.8 0.1-1.0 MG/DL Aspartate Amino Transf (AST/SGOT) 17 5-34 U/L Alanine Aminotransferase (ALT/SGPT) 18 0-55 U/L Alkaline Phosphatase 140 H 40-136 U/L C-Reactive Protein 4.79 H <0.50 MG/DL Total Protein 7.3 6.4-8.2 GM/DL Albumin 3.9 3.2-4.5 GM/DL My Orders Orders - PEDRITO SANTIAGO MD Ua Culture If Indicated (09/05/22 22:05) Cbc With Automated Diff (09/05/22 22:15) Comprehensive Metabolic Panel (09/05/22 22:15) Blood Culture (09/05/22 22:15) Ed Iv/Invasive Line Start (09/05/22 22:15) Crp Fs (09/05/22 22:15) Lactic Acid Analyzer (09/05/22 22:15) Ns Iv 1000 Ml (Sodium Chloride 0.9%) (09/05/22 22:15) Ceftriaxone 1 Gm Pre-Mix (Rocephin 1 Gm (09/05/22 22:15) Ketorolac Injection (Toradol Injection) (09/05/22 22:15) Urine Culture (09/05/22 22:05) Manual Differential (09/05/22 22:20) Vital Signs/I&O 09/05/22 09/05/22 22:05 23:26 Temp 36.8 Pulse 137 99 Resp 22 19 B/P (MAP) 123/57 (79) 124/81 Pulse Ox 97 97 O2 Delivery Room Air Room Air Capillary Refill : Progress Note #1: Progress Note Potential life-threatening conditions of sepsis, pyelonephritis, diverticulitis, kidney stone with obstruction, kidney failure, colitis, urinary mass, or urinary tract infection. Obtain urinalysis to look for signs of infection and culture. With her tachycardia and chills will obtain basic labs of CBC, chemistry, CRP, blood cultures, lactic acid. Administer normal saline 1 L IV fluid bolus for hydration. After the cultures are drawn we will administer Rocephin 1 g IV. For body aches and headache we will give Toradol 30 mg IV x1. She denied having any nausea currently so will defer antiemetic for now. With her having tenderness over the left CVA area she certainly could have some pyelonephritis. However if she improves with treatment here in the ED she is not having recurrent episodes of nausea vomiting and could conceivably be treated as an outpatient with starting medications here in the ED. However if she is showing signs of sepsis with her blood work and is not improving with her heart rate and flank pain with treatment and medications here in the ED and she might need admitted to the hospital for additional IV antibiotics and fluids. Consider CT scan of abdomen/pelvis to evaluate for pyelonephritis or pathology to cause her symptoms if not improving or having worsening symptoms of nausea, vomiting, fever, increasing flank pain, tachycardia worsening. Progress Note #2: Time: 22:37 Progress Note UA does show LE with WBC and Bacteria to go with UTI. She has dilute urine since she has been trying to drink more fluids at home. Her heart rate improved with moving the patient to a bed from the exam table in room 2. 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 CBC has elevated WBC count to 14.7 with left shift. Awaiting chemistry and lactic acid while IV fluids infuse along with Rocephin. Progress Note #3: Progress Note Patient reports feeling better with treatment here in the ED. She had improved heart rate as fluids infused. Lactic acid was just above normal at 2.1. this is likely dehydration and infection causing it but she does not seem septic or need emergent admit to the hospital. Her Chemistry panel otherwise was stable without acute kidney injury or elevation of liver enzymes. Continue with oral antibiotics after the bolus of Rocephin she received here in the ED. Check back with clinic for continued concerns or if not improving. Take full course of Macrobid 100 mg bid by mouth at home for the urine infection. May take Acetaminophen or Ibuprofen over the counter for additional pain control if needed. Push fluids and hydration. With her improving symptoms and vital signs with treatment in the ED I felt it was safe to treat her as an outpatient and that she did not need inpatient treatment for her UTI with dehydration and mild elevation of lactic acid. Departure Impression Primary Impression: Acute cystitis without hematuria Additional Impression: Dehydration Disposition: 01 HOME, SELF-CARE Condition: Stable Departure-Patient Inst. Decision time for Depature: 23:14 Referrals: CHANDANA FERRO MD (PCP) Primary Care Physician JOLEEN PRASAD APRN (Family) Primary Care Physician Patient Instructions: Urinary Tract Infection, Adult ED, Dehydration, Adult ED Add. Discharge Instructions: Drink plenty of water and electrolyte drinks to help with hydration and flushing the infection out of your urine. Take the full course of antibiotics to treat for UTI. Use Acetaminophen or Ibuprofen to help with pain if needed. Check back with clinic for continued concerns. If you have findings with the urine culture that we need to change your antibiotic you will get a call in 2-3 days when the culture result is back and shows us what antibiotics will work best for your infection. Scripts Nitrofurantoin Monohyd/M-Cryst (Macrobid 100 mg Capsule) 100 Mg Capsule 1 TAB PO BID for UTI for 7 Days, #14 CAP 0 Refills Prov: PEDRITO SANTIAGO MD 09/05/22 Work/School Note: Work Release Form Date Seen in the Emergency Department: Sep 05, 2022 Return to Work: Sep 07, 2022 Restrictions: No Restrictions PEDRITO SANTIAGO MD Sep 05, 2022 22:22
[2022-09-05 22:28] LABS: BASOPHILS # (AUTO) 0.1 10^3/uL (0.0-0.1); BASOPHILS % (AUTO) 0 % (0-10); EOSINOPHILS # (AUTO) 0.1 10^3/uL (0.0-0.3); EOSINOPHILS % (AUTO) 1 % (0-10); HEMATOCRIT 38 % (35-52); HEMOGLOBIN 12.2 g/dL (11.5-16.0); LYMPHOCYTES # (AUTO) 0.9 10^3/uL (1.0-4.0); LYMPHOCYTES % (AUTO) 6 % (12-44); MEAN CORPUSCULAR HEMOGLOBIN 26 pg (25-34); MEAN CORPUSCULAR HGB CONC 32 g/dL (32-36); MEAN CORPUSCULAR VOLUME 80 fL (80-99); MEAN PLATELET VOLUME 9.2 fL (9.0-12.2); MONOCYTES # (AUTO) 1.3 10^3/uL (0.0-1.0); MONOCYTES % (AUTO) 9 % (0-12); NEUTROPHILS # (AUTO) 12.2 10^3/uL (1.8-7.8); NEUTROPHILS % (AUTO) 83 % (42-75); PLATELET COUNT 275 10^3/uL (130-400); WHITE BLOOD COUNT 14.7 10^3/uL (4.3-11.0)
[2022-09-05 22:51] LABS: CALCIUM 9.7 MG/DL (8.5-10.1); CREATININE SERUM 0.88 MG/DL (0.60-1.30); POTASSIUM 3.6 MMOL/L (3.6-5.0); TOTAL PROTEIN 7.3 GM/DL (6.4-8.2)
[2022-09-05 22:52] LABS: ALBUMIN 3.9 GM/DL (3.2-4.5); BILIRUBIN,TOTAL 0.8 MG/DL (0.1-1.0)
[2022-09-05 22:59] LABS: BAND NEUTROPHILS 7 %; BASOPHILS % (MANUAL) 0 %; EOSINOPHILS % (MANUAL) 0 %; LYMPHOCYTES % (MANUAL) 5 %; MONOCYTES % (MANUAL) 3 %; NEUTROPHILS % (MANUAL) 85 %
[2022-09-05] MEDS ORDERED: NITR-65 PO (23:16)
[2022-09-05 23:26] VITALS: BP 124/81
== END 2022-09-05 23:31 | disposition home or self-care (01) ==
LOC: EDUNIT# 22:02 → ER FS 22:03
DX: N30.90 Cystitis, unspecified without hematuria (principal); E86.0 Dehydration; M17.10 Unilateral primary osteoarthritis, unspecified knee; E66.9 Obesity, unspecified; G47.30 Sleep apnea, unspecified; Z68.44 Body mass index [BMI] 60.0-69.9, adult; Z88.0 Allergy status to penicillin; Z79.1 Long term (current) use of non-steroidal anti-inflammatories (NSAID); Z99.89 Dependence on other enabling machines and devices
CPT/HCPCS: 36415; 80053; 81000; 83605; 85007; 85027; 86141; 87040; 87088

== ENCOUNTER 2023-03-26 05:34 | Outpatient (CLI) | payer BC ==
[~2023-03-26] VITALS: Ht 160 cm; Wt 142.3 kg
[~2023-03-26 05:34] MED LIST changes: +NITR-65 PO
== END 2023-03-26 08:46 | disposition home or self-care (01) ==
LOC: PREOP 05:34
PROVIDERS: ATTEND Orthopaedic Surgery
DX: Z01.818 Encounter for other preprocedural examination (principal)

== ENCOUNTER 2023-03-28 08:31 | Day surgery (SDC) | payer BC ==
[~2023-03-28] VITALS: Ht 160 cm; Wt 142.3 kg
[2023-03-28] VITALS (11 sets, daily range): BP systolic 96–117; BP diastolic 63–84
[2023-03-28] MEDS ORDERED: LACTATED RINGERS 1,000 ML IV PRN (09:15)
[2023-03-28] MEDS ORDERED: CLINDAMYCIN 600 MG/50 ML IVPB 50 ML IV ONE (09:15)
--- NOTE | 2023-03-28 09:16 | Progress Note-Pre Operative ---
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
--- NOTE | 2023-03-28 09:18 | Progress Note-Post Operative ---
Post-Operative Progess Note Surgeon (s)/Right Of Way Worker (s) Surgeon TELLY RESTREPO MD Right Of Way Worker: Ranjith Victoria Pre-Operative Diagnosis right knee chondromalacia and medial meniscus tear Post-Operative Diagnosis right knee chondromalacia of the medial femoral condyle, medial and lateral tibial plateaus and patella and medial and lateral meniscus tears Procedure & Operative Findings Date of Procedure 03/28/23 Procedure Performed/Findings right knee arthroscopic chondroplasty of the medial femoral condyle, medial and lateral tibial plateaus and patella and partial medial and lateral meniscectomies Anesthesia Type GETA Estimated Blood Loss Estimated blood loss (mL): minimal Specimens/Packing Specimens Removed none Packing: none TELLY RESTREPO MD Mar 28, 2023 09:18
[2023-03-28] MEDS ORDERED: MIDAZOLAM INJ 2 MG/2 ML VIAL IV ONE (09:30)
[2023-03-28] MEDS ORDERED: ONDANSETRON 4 MG/2 ML (SDV) Z0FRAN ONE (09:32)
[2023-03-28] MEDS ORDERED: fentaNYL INJECTION 100 MCG/2 ML VIAL ONE (09:32)
[2023-03-28] MEDS ORDERED: proPOfol 200 MG/20 ML (DIPRIVAN) VIAL IV ONE (09:32)
[2023-03-28] MEDS ORDERED: LIDOCAINE PF 2% 5 ML VIAL ONE (09:32)
[2023-03-28] MEDS ORDERED: dexAMETHasone INJ 10 MG/ML 1 ML VIAL ONE (09:32)
[2023-03-28] MEDS ORDERED: morphine PRESERVATIVE free 10 MG/10 ML AMP ONE (09:51)
[2023-03-28] MEDS ORDERED: BUPIVACAINE 0.25% 30 ML VIAL ONE (09:51)
[2023-03-28] MEDS ORDERED: HYDR-3817 PO (09:54)
[2023-03-28] MEDS ORDERED: HYDROcodone/ACETAMINOPHEN 7.5 MG/325 MG TABLET PO PRN (10:00)
[2023-03-28] MEDS ORDERED: SEVOFLURANE (ULTANE) 15 ML INHAL SOLN ONE (10:14)
--- NOTE | 2023-03-28 10:48 | Anesthesia-General Post-Op ---
General Patient Condition Mental Status/LOC: Same as Preop Cardiovascular: Satisfactory Nausea/Vomiting: Absent Respiratory: Satisfactory Pain: Controlled Complications: Absent Post Op Complications Complications None Follow Up Care/Instructions Patient Instructions None needed. Anesthesia/Patient Condition Patient Condition Patient is doing well, no complaints, stable vital signs, no apparent adverse anesthesia problems. No complications reported per nursing. LAURA MEEK CRNA Mar 28, 2023 10:48
[2023-03-28] MEDS ORDERED: BUPIVACAINE 0.25% 30 ML VIAL INJ ONE (10:55)
[2023-03-28] MEDS ORDERED: morphine PRESERVATIVE free 10 MG/10 ML AMP IV ONE (10:56)
[2023-03-28] MEDS ORDERED: ONDANSETRON 4 MG/2 ML (SDV) Z0FRAN IVP PRN (11:00)
[2023-03-28] MEDS ORDERED: morphine INJ 10 MG/ML 1ML (SYR OR VIAL) IVP ONE (11:00)
[2023-03-28] MEDS ORDERED: MEPERIDINE INJ 50 MG/ML VIAL IVP ONE (11:00)
--- NOTE | 2023-03-28 16:06 | Physical Therapy Ortho Eval ---
PT Orthopedic Evaluation Type of Surgery Knee Scope Prior Level of Function Current Living Status: Spouse Locomotion (Upon Admit): Independent Established Durable Medical Eq: Crutches Subjective Subjective Patient lying supine in bed upon PT arrival, agreeable to treatment. Patient rates pain at 1-2/10 currently. Entry Into Home: Stairs With Railing Steps Into Home: 3 Steps Accessories: Railing Present Motor Control Motor Control: Motor Control WNL ROM ROM: WFL, except focal deficit Strength Strength: Gen Weak,No Focal Deficit Transfer SCALE: Activities may be completed with or without assistive devices. 7-[place]-aqjndrr completes the activity by him/herself with no assistance from a helper. 5-Set-up or Clean-up Assistance-helper sets up or cleans up; patient completes activity. [place] assists only prior to or following the activity. 4-Supervision or Touching Assistance-helper provides verbal cues and/or t ouching/steadying and/or contact guard assistance as patient completes activity. Assistance may be provided throughout the activity or intermittently. 3-Partial/Moderate Assistance-helper does LESS THAN HALF the effort. [place] lifts, holds or supports trunk or limbs, but provides less than half the effort. 2-Substantial/Maximal Assistance-helper does MORE THAN HALF the effort. [place] lifts or holds trunk or limbs and provides more than half the effort. 2-Gnsyirwkr-mrlxyp does ALL the effort. Patient does none of the effort to complete the activity. Or, the assistance of 2 or more helpers is required for the patient to complete the activity. If activity was not attempted, code reason: 7-Patient Refused. 9-Not Applicable-not attempted and the patient did not perform the activity before the current illness, exacerbation or injury. 10-Not Attempted due to Environmental Limitations-(lack of equipment, weather restraints, etc.). 88-Not Attempted due to Medical Conditions or Safety Concerns. Transfers (B, C, W/C) (QC): 4 Gait Gait Assistive Device: Crutches Right Lower Extremity: Right Weight Bearing Status RLE: Weight Bearing/Tolerated Left Lower Extremity: Left Weight Bearing Status LLE: Weight Bearing/Tolerated Gait (QC): 4 Distance: 40' Stairs #of Steps: 3 Walking Assistive Device: Crutches Treatment Rendered Treatment: Therapeutic Exercises, Gait Train, Step Train Assessment/Goals Goal Time Frame: 1 Visit Understands HEP: Yes Safe Ambulation: Yes Plan Treatment Plan: Discharge Time Time In: 1259 Time Out: 1313 Total Billed Treatment Time: 14 Billed Treatment Time Visit, ANTOINE CARROLL PT Mar 28, 2023 16:06
--- NOTE | 2023-03-28 16:37 | OPERATIVE REPORT ---
DATE OF SERVICE: 03/28/2023 PREOPERATIVE DIAGNOSES: 1. Right knee medial meniscus tear. 2. Right knee lateral meniscus tear. 3. 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 4. Right knee chondromalacia patella. POSTOPERATIVE DIAGNOSES: 1. Right knee medial meniscus tear. 2. Right knee lateral meniscus tear. 3. 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 4. Right knee chondromalacia patella. 5. Right knee chondromalacia of medial tibial plateau. 6. Right knee chondromalacia of lateral tibial plateau. PROCEDURE: 1. Right knee arthroscopic partial medial meniscectomy. 2. Right knee arthroscopic partial lateral meniscectomy. 3. Right knee arthroscopic chondroplasty of the medial tibial plateau. 4. Right knee arthroscopic chondroplasty of medial femoral condyle. 5. Right knee arthroscopic chondroplasty of lateral tibial plateau. 6. Right knee arthroscopic chondroplasty of the patella. SURGEON: Derek Restrepo MD BROOM BUILDER: Ranjith Victoria, who assisted throughout the procedure and closed the incisions. ANESTHESIA: General endotracheal by Matt Leija CRNA. TOURNIQUET TIME: Not applicable. ESTIMATED BLOOD LOSS: Minimal. DRAINS: None. COMPLICATIONS: None. POSTOPERATIVE PLAN: Routine arthroscopy protocol. The patient was transferred to recovery room awake and stable condition. STATEMENT OF MEDICAL NECESSITY: The patient is a 58-year-old female with longstanding progressive right knee pain, catching and locking. Radiographs revealed significant medial and patellofemoral joint space narrowing. The patient was counseled that arthroscopy could help with her mechanical symptoms, but would not guarantee alleviation of her arthritic symptoms. The patient was hoping to get some relief, so that she could exercise and lose weight, understanding that she may need total knee arthroplasty in the future. DESCRIPTION OF PROCEDURE: After risks and benefits of the procedure were discussed and questions were answered, informed consent was signed and placed on the chart, the operative site was confirmed in preoperative holding area initialed by surgeon. The patient was then transferred to the operating room. After adequate levels of general endotracheal anesthetic were obtained, timeout was called, confirming the operative site. Examination under anesthesia was performed, which revealed range of motion 0/2/130 with negative Leeann, negative anterior and posterior drawer. No varus or valgus laxity, negative pivot shift. The right lower extremity was prepped and draped in the usual sterile fashion. The knee joint was injected with 60 mL of fluid and standard inferolateral portal was placed for the arthroscope and direct visualization and inferior medial portal was created. The menisci and cruciates were carefully probed. The patella demonstrated grade IV chondral loss centrally in a 5 x 5 area with surrounding grade III chondral flaps in a 10 x 10 area. The trochlea demonstrated grade I chondral softening with no unstable chondral flaps. The unstable chondral flaps on the patella were debrided with a shaver back to a stable edge. The medial and lateral gutters were found to be clear. The ACL and PCL were intact. The scope was redirected into the medial compartment where the patient had grade IV chondral loss in adjacent 15 x 20 areas of the femoral condyle and tibial plateau with surrounding grade III chondral flaps at the periphery of each lesion on the femoral condyle and tibial plateau. These areas were debrided with a shaver back to a stable edge. The medial meniscus demonstrated a degenerative tear involving approximately one-third of the posterior horn. This was debrided with a shaver back to a stable edge. Scope was then redirected into the lateral compartment where there was a flap tear of the lateral meniscus involving approximately 20% of body of lateral meniscus. This was debrided with a shaver back to a stable edge. The unstable chondral flaps on the lateral tibial plateau, which were grade II in nature and in a 10 x 10 area were debrided with a shaver back to a stable edge. The knee joint was copiously irrigated. The portal sites were closed with 4-0 nylon in simple interrupted fashion. Knee was injected with Duramorph. Port sites were infiltrated with plain Marcaine. A soft dressing was applied. The patient was transported to the recovery room awake and stable condition. Job ID: [id number] DocumentID: [id number] Dictated Date: 03/28/2023 10:53:37 Slipper Maker Date: 03/28/2023 16:35:00 Dictated By: DEREK RESTREPO MD
== END 2023-03-28 13:20 | disposition home or self-care (01) ==
LOC: SDC 08:31
PROVIDERS: ATTEND Orthopaedic Surgery
DX: M23.231 Derangement of other medial meniscus due to old tear or injury, right knee (principal); S83.281A Other tear of lateral meniscus, current injury, right knee, initial encounter; M94.261 Chondromalacia, right knee; M17.11 Unilateral primary osteoarthritis, right knee; G47.33 Obstructive sleep apnea (adult) (pediatric); E66.01 Morbid (severe) obesity due to excess calories; Z99.81 Dependence on supplemental oxygen; Z68.43 Body mass index [BMI] 50.0-59.9, adult
CPT/HCPCS: 87081